=== PATIENT | female | born 1960 | race Caucasian/White ===

== ENCOUNTER 2016-05-29 13:03 | Inpatient (IN) | payer MEDICAID ==
[~2016-05-29] VITALS: Ht 170.2 cm; Wt 48.8 kg
[2016-05-29 13:35] LABS: Basophils # (auto) 0.1 uL; Basophils % (auto) 0.4 % (0.0-2.0); Eosinophils # (auto) 0.4 uL; Eosinophils % (auto) 2.4 % (0.0-7.0); Hematocrit 45.1 % (36.0-46.0); Lymphocytes # (auto) 1.6 uL; Lymphocytes % (auto) 11.1 % (10.0-50.0); Mean Corpuscular Hemoglobin 31.1 pg (28.0-32.0); Mean Corpuscular Hgb Conc. 33.2 g/dL (32.0-36.0); Mean Corpuscular Volume 93.7 fL (80.0-100.0); Mean Platelet Volume 7.9 fL (7.4-10.4); Monocytes # (auto) 1.3 uL; Monocytes % (auto) 8.6 % (0.0-12.0); Neutrophils # (auto) 11.3 uL; Neutrophils % (auto) 77.5 % (37.0-80.0); Platelet Count (auto) 205 10^3/uL (140-450); Red Cell Distribution Width 13.4 % (11.6-16.0); White Blood Cell 14.5 10^3/uL (4.4-10.8)
[2016-05-29 14:13] LABS: Albumin 3.3 g/dL (3.4-5.0); Alkaline Phosphatase 181 U/L (45-117); Anion Gap 11 (5-15); Aspartate Aminotransferase 37 U/L (15-37); BUN/Creatinine Ratio 18.2; Bilirubin, Total 0.7 mg/dL (0.2-1.0); Blood Urea Nitrogen 14 mg/dL (7-18); Calcium 8.8 mg/dL (8.5-10.1); Carbon Dioxide 29 mmol/L (21-32); Chloride 99 mmol/L (98-107); GFR African American 99 mL/min; GFR Non-African American 82 mL/min; Glucose 111 mg/dL (74-106); Potassium 3.9 mmol/L (3.5-5.1); Sodium 139 mmol/L (136-145); Total Protein 8.4 g/dL (6.4-8.2)
[2016-05-29] MEDS ORDERED: cefTRIAXone 1GM/50ML D5W 50 ML IV ONE (14:45)
[2016-05-29] MEDS ORDERED: ALBUTEROL SULF 2.5 MG/0.5ML(0.5%) NEB SOLN NEB ONE (14:45)
[2016-05-29] MEDS ORDERED: LEVOFLOXACIN 500MG 100 ML IV ONE (14:45)
[2016-05-29] MEDS ORDERED: SODIUM CHLORIDE 0.9% 1,000 ML IV ONE (14:45)
[2016-05-29] MEDS ORDERED: IPRATROPIUM BROM 0.5 MG/2.5ML INH SOL NEB ONE (14:45)
[2016-05-29] MEDS: SODIUM CHLORIDE 0.9% 1,000 ML IV SCH (15:20)
[2016-05-29] MEDS ORDERED: PROMETHAZINE HCL 25 MG/ML 1ML IV PRN (15:30)
[2016-05-29] MEDS ORDERED: MORPHINE SULF INJ 2 MG/ML SYRINGE 1ML IV PRN ×2 (15:30)
[2016-05-29] MEDS ORDERED: LACTULOSE 20Gm/30ML SOLN PO PRN (15:30)
[2016-05-29] MEDS ORDERED: HYDROcodone-ACET 5/325MG TAB PO PRN (15:30)
[2016-05-29] MEDS ORDERED: ACETAMINOPHEN 500 MG TAB PO PRN (15:30)
[2016-05-29] MEDS ORDERED: ALBUTEROL SULF 2.5 MG/0.5ML(0.5%) NEB SOLN NEB PRN (15:30)
[2016-05-29] MEDS ORDERED: TEMAZEPAM 15 MG CAP PO PRN (15:30)
[2016-05-29] MEDS ORDERED: OSELTAMIVIR 75 MG CAP PO ONE (15:30)
[2016-05-29] MEDS ORDERED: NITROGLYCERIN 0.4 MG SL TAB SL PRN (15:30)
[2016-05-29] MEDS ORDERED: LORazepam 0.5 MG TAB PO PRN (15:30)
[2016-05-29] MEDS ORDERED: ENOXAPARIN SOD 40 MG/0.4 ML SYRINGE SC ONE (15:45)
[2016-05-29] MEDS: DOXYCYCLINE HYC 100MG/250ML 250 ML IV SCH (17:04)
[2016-05-29] MEDS: methylPREDNISolone SOD SUCC 40 MG/ML VL IV SCH (18:09)
[2016-05-29] MEDS: IPRATROPIUM BROM 0.5 MG/2.5ML INH SOL NEB SCH (19:35)
[2016-05-29] MEDS: ALBUTEROL SULF 2.5 MG/0.5ML(0.5%) NEB SOLN NEB SCH (19:35)
[2016-05-29 20:00] VITALS: BP 141/71
[2016-05-29] MEDS: OSELTAMIVIR 30 MG CAP PO SCH (21:36)
[2016-05-29 22:00] VITALS: BP 163/74
[2016-05-29] MEDS ORDERED: OSELTAMIVIR 75 MG CAP PO SCH (22:00)
[2016-05-30] MEDS: methylPREDNISolone SOD SUCC 40 MG/ML VL IV SCH ×4 (00:01→18:00)
[2016-05-30] MEDS: IPRATROPIUM BROM 0.5 MG/2.5ML INH SOL NEB SCH ×3 (00:28→11:51)
[2016-05-30] MEDS: ALBUTEROL SULF 2.5 MG/0.5ML(0.5%) NEB SOLN NEB SCH ×3 (00:29→11:51)
[2016-05-30] MEDS: DOXYCYCLINE HYC 100MG/250ML 250 ML IV SCH ×2 (03:32→16:12)
[2016-05-30 05:00] VITALS: BP 164/85
[2016-05-30] MEDS: SODIUM CHLORIDE 0.9% 1,000 ML IV SCH ×2 (05:07→18:00)
[2016-05-30 06:11] LABS: Basophils # (auto) 0 uL; Eosinophils # (auto) 0 uL; Hematocrit 40.7 % (36.0-46.0); Hemoglobin 13.6 g/dL (12.2-16.2); Lymphocytes # (auto) 0.7 uL; Lymphocytes % (auto) 7.6 % (10.0-50.0); Mean Corpuscular Hemoglobin 31.2 pg (28.0-32.0); Mean Corpuscular Hgb Conc. 33.5 g/dL (32.0-36.0); Mean Corpuscular Volume 93.1 fL (80.0-100.0); Mean Platelet Volume 8.5 fL (7.4-10.4); Monocytes # (auto) 0.1 uL; Monocytes % (auto) 0.7 % (0.0-12.0); Neutrophils # (auto) 8.5 uL; Neutrophils % (auto) 91.7 % (37.0-80.0); Platelet Count (auto) 191 10^3/uL (140-450); Red Cell Distribution Width 13.1 % (11.6-16.0); White Blood Cell 9.3 10^3/uL (4.4-10.8)
[2016-05-30 06:37] LABS: Cholesterol 158 mg/dL (<200); HDL Cholesterol 28 mg/dL (40-59); LDL Cholesterol 129 mg/dL (<100); Triglycerides 71 mg/dL (<150)
[2016-05-30 08:00] VITALS: BP 153/74
[2016-05-30 09:00] VITALS: BP 153/74
[2016-05-30] MEDS ORDERED: ENOXAPARIN SOD 40 MG/0.4 ML SYRINGE SC SCH (10:00)
[2016-05-30] MEDS: OSELTAMIVIR 30 MG CAP PO SCH (10:40)
[2016-05-30 13:00] VITALS: BP 138/59
[2016-05-30] MEDS ORDERED: GABA300C8 (14:09)
[2016-05-30] MEDS ORDERED: BENZ1CAP24 (14:15)
[2016-05-30] MEDS ORDERED: [UNRECOGNIZED DRUG - CODE] (14:15)
[2016-05-30] MEDS ORDERED: PRO20T (14:15)
[2016-05-30] MEDS ORDERED: NIFE60TA59 (14:15)
[2016-05-30] MEDS ORDERED: HYDRX10T (14:15)
[2016-05-30] MEDS ORDERED: PANT40T (14:15)
[2016-05-30] MEDS ORDERED: TRAZ50TA2 (14:15)
[2016-05-30] MEDS ORDERED: IPRIH IN (16:19)
[2016-05-30] MEDS ORDERED: DOXY1CAP82 PO (16:19)
[2016-05-30] MEDS ORDERED: ALB5IS NEB (16:19)
[2016-05-30] MEDS ORDERED: METH4PAK PO (16:19)
[2016-05-30] MEDS ORDERED: ALBUAER3 IN (16:19)
[2016-05-30 17:00] VITALS: BP 150/75
[2016-05-30 17:25] VITALS: BP 150/75
== END 2016-05-30 18:15 | disposition home health service (06) | DRG 140 ==
LOC: ER 13:03 → TELE 13:04 → TELE-WESTW 17:20
PROVIDERS: ADMIT Internal Medicine; ATTEND Internal Medicine
DX: J44.1 Chronic obstructive pulmonary disease with (acute) exacerbation (principal); I15.9 Secondary hypertension, unspecified; I10 Essential (primary) hypertension; K21.9 Gastro-esophageal reflux disease without esophagitis; F41.9 Anxiety disorder, unspecified; G47.00 Insomnia, unspecified; F17.200 Nicotine dependence, unspecified, uncomplicated; F12.10 Cannabis abuse, uncomplicated; Z98.51 Tubal ligation status; Z83.6 Family history of other diseases of the respiratory system; Z71.6 Tobacco abuse counseling
CPT/HCPCS: 36415; 71020; 80053; 80061; 84484; 85025; 87040; 87070; 87081; 87205; 93005; 94640; 96365; 96368; 96372; 99291; G9035; J0696; J1956; J3490

== ENCOUNTER 2020-09-26 22:29 | Inpatient (IN) | payer MEDICAID ==
[~2020-09-26] VITALS: Ht 170.2 cm; Wt 57.7 kg
[~2020-09-26 22:29] MED LIST: ALB5IS NEB; ALBUAER3 IN; BENZ200C64; DOXY-338 PO; GABA300C10; HYDRX10T; IPRIH IN; METH4PAK PO; NIFE1TAB30; PANT40T; PRO20T; TRAZ50TA2
[2020-09-26 23:20] LABS: Hemoglobin 14.6 g/dL (12.2-16.2); Mean Corpuscular Hemoglobin 28.6 pg (28.0-32.0); Mean Corpuscular Hgb Conc. 33.9 g/dL (32.0-36.0); Mean Corpuscular Volume 84.5 fL (80.0-100.0); Platelet Count (auto) 243 10^3/uL (140-450); Red Blood Cells 5.09 10^6/uL (4.0-5.20); Red Cell Distribution Width 15.5 % (11.8-14.3); White Blood Cell 8.4 10^3/uL (4.4-10.8)
[2020-09-26 23:25] LABS: Band Neutrophils % (manual) 0; Basophils % (manual) 0 (0.0-2.0); Blast Cells 0; Calcium 9.3 mg/dL (8.5-10.1); Chloride 103 mmol/L (98-107); Potassium 4.2 mmol/L (3.5-5.1); Promyelocytes % 0; Reactive Lymphocytes 0; Sodium 137 mmol/L (136-145)
[2020-09-26 23:28] LABS: Albumin 4.5 g/dL (3.4-5.0); Anion Gap 7 (5-15); BUN/Creatinine Ratio 8.1; Blood Urea Nitrogen 8 mg/dL (7-18); Carbon Dioxide 27 mmol/L (21-32); GFR African American 73 mL/min; GFR Non-African American 60 mL/min; Glucose 124 mg/dL (74-106); Magnesium 2.6 mg/dL (1.6-2.6)
[2020-09-26 23:29] LABS: INR 1.05 (0.9-1.15); Partial Thromboplastin Time 26.8 sec (23.0-31.2)
[2020-09-26 23:35] LABS: Alanine Aminotransferase 23 U/L (13-56); Alkaline Phosphatase 89 U/L (45-117); Aspartate Aminotransferase 23 U/L (15-37); Bilirubin, Total 0.7 mg/dL (0.2-1.0); Total Protein 9.4 g/dL (6.4-8.2)
[2020-09-27 00:30] LABS: Eosinophils % (manual) 14 (0-7); Lymphocytes % (manual) 26 (10.0-50.0); Metamyelocytes % 1; Monocytes % (manual) 7 (0-12); Myelocytes % 1
[2020-09-27] MEDS ORDERED: methylPREDNISolone SOD SUCC 125 MG/2 ML VL IV ONE (01:45)
[2020-09-27 02:52] LABS: Urine Bacteria FEW /hpf (None Seen); Urine Blood Negative /uL (Negative); Urine Mucus FEW (None Seen); Urine Specific Gravity 1.007 (1.001-1.035); Urine WBC 1 /hpf (0 - 5)
[2020-09-27] MEDS ORDERED: ALBUTEROL SULF 2.5 MG/0.5ML(0.5%) NEB SOLN NEB ONE (03:00)
[2020-09-27] MEDS ORDERED: ALBUTEROL SULF 2.5 MG/0.5ML(0.5%) NEB SOLN ONE ×2 (03:13→07:30)
[2020-09-27] MEDS ORDERED: IPRATROPIUM BROM 0.5 MG/2.5ML INH SOL ONE (03:14)
[2020-09-27] MEDS: MAGNESIUM SULFATE 1GM/100ML 100 ML IV SCH ×2 (03:55→04:54)
[2020-09-27] MEDS ORDERED: ONDANSETRON HCL 4 MG/2 ML VIAL IV PRN (07:15)
[2020-09-27] MEDS ORDERED: MORPHINE SULF INJ 2 MG/ML SYRINGE 1ML IV PRN (07:15)
[2020-09-27] MEDS: ALBUTEROL SULF 2.5 MG/0.5ML(0.5%) NEB SOLN NEB SCH ×5 (07:49→22:01)
[2020-09-27 07:54] VITALS: BP 165/72
[2020-09-27] MEDS: methylPREDNISolone SOD SUCC 125 MG/2 ML VL IV SCH ×2 (10:10→21:22)
[2020-09-27] MEDS: levoFLOXacin 500MG 100 ML IV SCH (10:10)
[2020-09-27] MEDS: ENOXAPARIN SOD 40 MG/0.4 ML SYRINGE SC SCH (11:16)
[2020-09-27 11:53] VITALS: BP 146/77
[2020-09-27 12:00] VITALS: BP 146/77
[2020-09-27 16:00] VITALS: BP 172/83
[2020-09-27] MEDS ORDERED: hydrALAZINE HCL 20 MG/ML VL IV PRN (16:15)
[2020-09-27 17:00] VITALS: BP 158/75
[2020-09-27] MEDS ORDERED: IBUP200C3 PO (17:10)
[2020-09-27] MEDS: NIFEdipine ER 30 MG TAB PO SCH (17:11)
[2020-09-27] MEDS: GABAPENTIN 300 MG CAP PO SCH (21:22)
[2020-09-27 22:00] VITALS: BP 159/60
[2020-09-27] MEDS: traZODone HCL 50 MG TAB PO SCH (22:32)
[2020-09-28] MEDS: ALBUTEROL SULF 2.5 MG/0.5ML(0.5%) NEB SOLN NEB SCH ×2 (02:06→05:29)
[2020-09-28 05:00] VITALS: BP 136/70
[2020-09-28] MEDS: methylPREDNISolone SOD SUCC 125 MG/2 ML VL IV SCH ×3 (05:30→21:46)
[2020-09-28 08:00] VITALS: BP 129/77
[2020-09-28 09:00] VITALS: BP 129/77
[2020-09-28] MEDS: levoFLOXacin 500MG 100 ML IV SCH (09:41)
[2020-09-28] MEDS: ENOXAPARIN SOD 40 MG/0.4 ML SYRINGE SC SCH (09:42)
[2020-09-28] MEDS: NIFEdipine ER 30 MG TAB PO SCH (09:42)
[2020-09-28] MEDS: GABAPENTIN 300 MG CAP PO SCH ×2 (09:42→21:45)
[2020-09-28 13:00] VITALS: BP 140/72
[2020-09-28] MEDS: ALBUTEROL SULF 2.5 MG/0.5ML(0.5%) NEB SOLN NEB PRN ×2 (13:00→19:34)
[2020-09-28 17:00] VITALS: BP 141/73
[2020-09-28] MEDS ORDERED: IPRIH IN (17:07)
[2020-09-28] MEDS ORDERED: LEVO500T31 PO (17:11)
[2020-09-28] MEDS ORDERED: PRED20TA2 PO (17:11)
[2020-09-28 21:41] VITALS: BP 146/75
[2020-09-28] MEDS: traZODone HCL 50 MG TAB PO SCH (21:45)
[2020-09-29 04:36] VITALS: BP 158/71
[2020-09-29] MEDS: methylPREDNISolone SOD SUCC 125 MG/2 ML VL IV SCH (05:19)
[2020-09-29] MEDS: ALBUTEROL SULF 2.5 MG/0.5ML(0.5%) NEB SOLN NEB PRN ×3 (07:47→18:26)
[2020-09-29 09:00] VITALS: BP 145/71
[2020-09-29] MEDS ORDERED: methylPREDNISolone SOD SUCC 40 MG/ML VL IV SCH ×2 (09:00→18:00)
[2020-09-29] MEDS: levoFLOXacin 500MG 100 ML IV SCH (09:27)
[2020-09-29] MEDS: GABAPENTIN 300 MG CAP PO SCH (09:28)
[2020-09-29] MEDS: NIFEdipine ER 30 MG TAB PO SCH (09:30)
[2020-09-29] MEDS: ENOXAPARIN SOD 40 MG/0.4 ML SYRINGE SC SCH (09:31)
[2020-09-29 13:00] VITALS: BP 150/85
[2020-09-29 15:43] VITALS: BP 150/85
[2020-09-29 17:00] VITALS: BP 111/52
== END 2020-09-29 18:40 | disposition home health service (06) | DRG 140 ==
LOC: ER 22:29 → EDBD 22:29 → TELE 09-27 07:02 → TELE-CENTR 09-27 10:25
PROVIDERS: ADMIT Hospitalist; ATTEND Hospitalist
PROC: 5A09357 Assistance with Respiratory Ventilation, Less than 24 Consecutive Hours, Continuous Positive Airway Pressure (ICD-10-PCS; principal; 2020-09-26)
DX: J44.1 Chronic obstructive pulmonary disease with (acute) exacerbation (principal); J96.01 Acute respiratory failure with hypoxia; J98.11 Atelectasis; F17.210 Nicotine dependence, cigarettes, uncomplicated; G25.81 Restless legs syndrome; I10 Essential (primary) hypertension; Z20.822 Contact with and (suspected) exposure to COVID-19; Z82.5 Family history of asthma and other chronic lower respiratory diseases; G62.9 Polyneuropathy, unspecified; K21.9 Gastro-esophageal reflux disease without esophagitis; F19.10 Other psychoactive substance abuse, uncomplicated
CPT/HCPCS: 36415; 36600; 71045; 80053; 81001; 82805; 83605; 83735; 83880; 84484; 85007; 85027; 85049; 85379; 85610; 85730; 87040; 87426; 93005; 94640; 96365; 96366; 96367; 96375; G0378; J1956

== ENCOUNTER 2020-10-25 04:42 | Inpatient (IN) | payer MEDICAID ==
[~2020-10-25] VITALS: Ht 170.2 cm; Wt 56.0 kg
[~2020-10-25 04:42] MED LIST changes: -ALB5IS NEB; -ALBUAER3 IN; -BENZ200C64; -DOXY-338 PO; -HYDRX10T; +LEVO500T31 PO; -METH4PAK PO; +PRED20TA2 PO; -PRO20T
[2020-10-25] MEDS ORDERED: methylPREDNISolone SOD SUCC 125 MG/2 ML VL IV ONE (05:00)
[2020-10-25] MEDS ORDERED: IPRATROPIUM BROM 0.5 MG/2.5ML INH SOL HHN ONE (05:00)
[2020-10-25] MEDS ORDERED: ALBUTEROL SULF 2.5 MG/0.5ML(0.5%) NEB SOLN HHN ONE (05:00)
[2020-10-25 08:11] LABS: Basophils # (auto) 0 10 ^3/uL (0-0.2); Basophils % (auto) 0.4 % (0.0-2.0); Eosinophils # (auto) 0.4 10 ^3/uL (0-0.8); Hematocrit 37.8 % (36.0-46.0); Hemoglobin 12.6 g/dL (12.2-16.2); Lymphocytes # (auto) 0.5 10 ^3/uL (0.4-5.4); Lymphocytes % (auto) 8.1 % (10.0-50.0); Mean Corpuscular Hemoglobin 28.4 pg (28.0-32.0); Mean Corpuscular Hgb Conc. 33.3 g/dL (32.0-36.0); Mean Corpuscular Volume 85.4 fL (80.0-100.0); Monocytes # (auto) 0.1 10 ^3/uL (0-1.3); Neutrophils # (auto) 5.2 10 ^3/uL (1.6-8.6); Neutrophils % (auto) 83.5 % (37.0-80.0); Red Blood Cells 4.43 10^6/uL (4.0-5.20); White Blood Cell 6.3 10^3/uL (4.4-10.8)
[2020-10-25 08:35] LABS: Albumin 4.1 g/dL (3.4-5.0); Anion Gap 7 (5-15); Blood Urea Nitrogen 11 mg/dL (7-18); Calcium 9.3 mg/dL (8.5-10.1); Carbon Dioxide 28 mmol/L (21-32); Chloride 98 mmol/L (98-107); Glucose 118 mg/dL (74-106); Magnesium 2.3 mg/dL (1.6-2.6); Potassium 4.5 mmol/L (3.5-5.1); Sodium 133 mmol/L (136-145)
[2020-10-25 08:37] LABS: Alanine Aminotransferase 19 U/L (13-56); Aspartate Aminotransferase 15 U/L (15-37); GFR African American 80 mL/min; GFR Non-African American 66 mL/min
[2020-10-25 08:41] LABS: Alkaline Phosphatase 73 U/L (45-117); Bilirubin, Total 0.4 mg/dL (0.2-1.0); Total Protein 8.1 g/dL (6.4-8.2)
[2020-10-25] MEDS ORDERED: MORPHINE SULF INJ 2 MG/ML SYRINGE 1ML IV PRN (11:45)
[2020-10-25] MEDS ORDERED: NITROGLYCERIN 0.4 MG SL TAB SL PRN (11:45)
[2020-10-25] MEDS: ALBUTEROL SULF 2.5 MG/0.5ML(0.5%) NEB SOLN NEB SCH ×2 (13:28→19:55)
[2020-10-25] MEDS: IPRATROPIUM BROM 0.5 MG/2.5ML INH SOL NEB SCH ×2 (13:28→19:55)
[2020-10-25 14:23] VITALS: BP 157/71
[2020-10-25 16:37] VITALS: BP 159/73
[2020-10-25 19:19] VITALS: BP 161/82
[2020-10-25 21:58] VITALS: BP 171/77
[2020-10-25 22:24] VITALS: BP 162/73
[2020-10-26] MEDS: IPRATROPIUM BROM 0.5 MG/2.5ML INH SOL NEB SCH ×4 (01:04→18:30)
[2020-10-26] MEDS: ALBUTEROL SULF 2.5 MG/0.5ML(0.5%) NEB SOLN NEB SCH ×4 (01:04→18:31)
[2020-10-26] MEDS ORDERED: hydrALAZINE HCL 20 MG/ML VL IV PRN (02:30)
[2020-10-26 05:00] VITALS: BP 156/92
[2020-10-26 09:00] VITALS: BP 162/70
[2020-10-26] MEDS ORDERED: NIFEdipine ER 30 MG TAB PO SCH (10:00)
[2020-10-26] MEDS ORDERED: methylPREDNISolone SOD SUCC 40 MG/ML VL IV SCH (10:00)
[2020-10-26 13:00] VITALS: BP 166/89
[2020-10-26] MEDS ORDERED: levoFLOXacin 500MG 100 ML IV SCH (13:30)
[2020-10-26] MEDS ORDERED: LEVO-28 PO (16:20)
[2020-10-26] MEDS ORDERED: PRED20TA2 PO (16:20)
[2020-10-26 16:48] VITALS: BP 165/77
[2020-10-26 17:06] VITALS: BP 162/70
== END 2020-10-26 18:30 | disposition home health service (06) | DRG 140 ==
LOC: ER 04:42 → EDBD 04:42 → TELE 11:40 → TELE-WESTW 15:44
PROVIDERS: ADMIT Internal Medicine; ATTEND Internal Medicine
PROC: 5A09357 Assistance with Respiratory Ventilation, Less than 24 Consecutive Hours, Continuous Positive Airway Pressure (ICD-10-PCS; principal; 2020-10-25)
DX: J44.1 Chronic obstructive pulmonary disease with (acute) exacerbation (principal); J96.21 Acute and chronic respiratory failure with hypoxia; Z99.81 Dependence on supplemental oxygen; J96.22 Acute and chronic respiratory failure with hypercapnia; Z20.822 Contact with and (suspected) exposure to COVID-19; F12.90 Cannabis use, unspecified, uncomplicated; F17.210 Nicotine dependence, cigarettes, uncomplicated; I10 Essential (primary) hypertension; F41.9 Anxiety disorder, unspecified; G62.9 Polyneuropathy, unspecified; K21.9 Gastro-esophageal reflux disease without esophagitis; Z82.5 Family history of asthma and other chronic lower respiratory diseases; Z71.3 Dietary counseling and surveillance; Z79.899 Other long term (current) drug therapy; Z68.1 Body mass index [BMI] 19.9 or less, adult
CPT/HCPCS: 36415; 36600; 71045; 80053; 82805; 83605; 83735; 83880; 84484; 85025; 85379; 87040; 87426; 93005; 94640; 94660; 96374; G0378; J1956

== ENCOUNTER 2020-11-13 23:49 | Emergency (ER) | payer MEDICAID ==
[~2020-11-13] VITALS: Ht 160 cm; Wt 77.1 kg
[~2020-11-13 23:49] MED LIST changes: +LEVO-28 PO; -LEVO500T31 PO
[2020-11-14 01:39] LABS: Basophils # (auto) 0.1 10 ^3/uL (0-0.2); Basophils % (auto) 0.8 % (0.0-2.0); Eosinophils # (auto) 0.9 10 ^3/uL (0-0.8); Eosinophils % (auto) 10.3 % (0.0-7.0); Hematocrit 36.9 % (36.0-46.0); Hemoglobin 12.6 g/dL (12.2-16.2); Lymphocytes # (auto) 1.1 10 ^3/uL (0.4-5.4); Lymphocytes % (auto) 13.2 % (10.0-50.0); Mean Corpuscular Hemoglobin 29.7 pg (28.0-32.0); Mean Corpuscular Hgb Conc. 34.2 g/dL (32.0-36.0); Mean Corpuscular Volume 86.7 fL (80.0-100.0); Monocytes # (auto) 0.9 10 ^3/uL (0-1.3); Monocytes % (auto) 10.7 % (0.0-12.0); Neutrophils # (auto) 5.4 10 ^3/uL (1.6-8.6); Red Blood Cells 4.26 10^6/uL (4.0-5.20); Red Cell Distribution Width 16.6 % (11.8-14.3); White Blood Cell 8.2 10^3/uL (4.4-10.8)
[2020-11-14 01:52] LABS: INR 1.04 (0.9-1.15); Partial Thromboplastin Time 27.6 sec (23.6-33.0)
[2020-11-14 01:56] LABS: Albumin 3.8 g/dL (3.4-5.0); Anion Gap 6 (5-15); Blood Urea Nitrogen 9 mg/dL (7-18); Carbon Dioxide 28 mmol/L (21-32); Chloride 101 mmol/L (98-107); Glucose 95 mg/dL (74-106); Magnesium 2.4 mg/dL (1.6-2.6); Potassium 4.6 mmol/L (3.5-5.1); Sodium 135 mmol/L (136-145)
[2020-11-14 01:59] LABS: Alanine Aminotransferase 23 U/L (13-56); Aspartate Aminotransferase 18 U/L (15-37); BUN/Creatinine Ratio 8.3; GFR African American 66 mL/min; GFR Non-African American 55 mL/min
[2020-11-14 02:04] LABS: Alkaline Phosphatase 68 U/L (45-117); Bilirubin, Total 0.6 mg/dL (0.2-1.0); Total Protein 8.1 g/dL (6.4-8.2)
[2020-11-14] MEDS ORDERED: cefTRIAXone 1GM/50ML D5W 50 ML IV ONE (03:00)
[2020-11-14] MEDS ORDERED: ALBUTEROL SULF 2.5 MG/0.5ML(0.5%) NEB SOLN NEB ONE (03:00)
[2020-11-14] MEDS ORDERED: methylPREDNISolone SOD SUCC 125 MG/2 ML VL IV ONE (03:00)
[2020-11-14] MEDS ORDERED: IPRATROPIUM BROM 0.5 MG/2.5ML INH SOL NEB ONE (03:00)
[2020-11-14 04:23] LABS: Urine Bacteria NONE SEEN /hpf (None Seen); Urine Blood Negative /uL (Negative); Urine Specific Gravity 1.003 (1.001-1.035); Urine WBC <1 /hpf (0 - 5)
[2020-11-14 06:00] VITALS: BP 138/65
== END 2020-11-14 06:48 | disposition home or self-care (01) ==
LOC: EDBD 23:49 → ER 23:49
DX: J44.1 Chronic obstructive pulmonary disease with (acute) exacerbation (principal); R19.7 Diarrhea, unspecified; I10 Essential (primary) hypertension; K21.9 Gastro-esophageal reflux disease without esophagitis; F41.9 Anxiety disorder, unspecified; Z20.822 Contact with and (suspected) exposure to COVID-19; Z87.891 Personal history of nicotine dependence
CPT/HCPCS: 36415; 71045; 80053; 81001; 83735; 83880; 84484; 85025; 85379; 85610; 85730; 87426; 94640; 96365; 96375; 99285; J0696; J2930; J7644; 93005

== ENCOUNTER 2020-12-06 01:55 | Emergency (ER) | payer MEDICAID ==
[~2020-12-06] VITALS: Ht 170.2 cm; Wt 69.9 kg
[2020-12-06 02:42] LABS: Basophils # (auto) 0.1 10 ^3/uL (0-0.2); Basophils % (auto) 0.9 % (0.0-2.0); Eosinophils # (auto) 0.5 10 ^3/uL (0-0.8); Eosinophils % (auto) 7.3 % (0.0-7.0); Hematocrit 37.8 % (36.0-46.0); Hemoglobin 12.7 g/dL (12.2-16.2); Lymphocytes # (auto) 1.2 10 ^3/uL (0.4-5.4); Lymphocytes % (auto) 17.6 % (10.0-50.0); Mean Corpuscular Hemoglobin 29.6 pg (28.0-32.0); Mean Corpuscular Hgb Conc. 33.6 g/dL (32.0-36.0); Mean Corpuscular Volume 88.2 fL (80.0-100.0); Monocytes # (auto) 0.7 10 ^3/uL (0-1.3); Monocytes % (auto) 9.7 % (0.0-12.0); Neutrophils # (auto) 4.5 10 ^3/uL (1.6-8.6); Neutrophils % (auto) 64.5 % (37.0-80.0); Nucleated Red Blood Cells % 0.2 %; Red Blood Cells 4.28 10^6/uL (4.0-5.20); Red Cell Distribution Width 16.8 % (11.8-14.3)
[2020-12-06 02:58] LABS: Albumin 3.8 g/dL (3.4-5.0); Anion Gap 7 (5-15); BUN/Creatinine Ratio 10.5; Blood Urea Nitrogen 12 mg/dL (7-18); Calcium 8.6 mg/dL (8.5-10.1); Carbon Dioxide 26 mmol/L (21-32); Chloride 100 mmol/L (98-107); GFR African American 62 mL/min; GFR Non-African American 51 mL/min; Glucose 103 mg/dL (74-106); Sodium 133 mmol/L (136-145)
[2020-12-06 03:03] LABS: Alanine Aminotransferase 22 U/L (13-56); Alkaline Phosphatase 60 U/L (45-117); Aspartate Aminotransferase 23 U/L (15-37); Bilirubin, Total 0.4 mg/dL (0.2-1.0); Total Protein 7.9 g/dL (6.4-8.2)
[2020-12-06] MEDS ORDERED: ALBUTEROL SULF 2.5 MG/0.5ML(0.5%) NEB SOLN NEB ONE (03:15)
[2020-12-06] MEDS ORDERED: IPRATROPIUM BROM 0.5 MG/2.5ML INH SOL NEB ONE (03:15)
[2020-12-06] MEDS ORDERED: methylPREDNISolone SOD SUCC 125 MG/2 ML VL IV ONE (03:15)
[2020-12-06] MEDS ORDERED: cefTRIAXone 1GM/50ML D5W 50 ML IV ONE (05:15)
[2020-12-06] MEDS ORDERED: AZITHROMYCIN 500MG/ 250ML 250 ML IV ONE (05:15)
[2020-12-06 07:10] VITALS: BP 134/85
== END 2020-12-06 08:18 | disposition home or self-care (01) ==
LOC: ER 01:55 → EDBD 01:55 → ER 07:41
DX: J44.1 Chronic obstructive pulmonary disease with (acute) exacerbation (principal); K21.9 Gastro-esophageal reflux disease without esophagitis; I10 Essential (primary) hypertension; F12.10 Cannabis abuse, uncomplicated; Z87.891 Personal history of nicotine dependence
CPT/HCPCS: 36415; 71045; 80053; 83880; 84484; 85025; 93005; 94644; 96365; 96368; 96375; 99284; J0456; J0696; J2930; J7644

== ENCOUNTER 2022-11-06 15:15 | Inpatient (IN) | payer MEDICAID ==
[~2022-11-06] VITALS: Ht 170.2 cm; Wt 56.7 kg
[~2022-11-06 15:15] MED LIST changes: +GABA-1250; -GABA300C10; -LEVO-28 PO; +LEVO500T91 PO; +TRAZ-227; -TRAZ50TA2
[2022-11-06 16:00] VITALS: PULSE 100; RESP 18; O2SAT 95
[2022-11-06] MEDS ORDERED: NITROGLYCERIN 2% OINT 1GM PKG TD STA (16:12)
[2022-11-06] MEDS ORDERED: ASPirin 81 mg TAB PO ONE ×2 (16:15)
[2022-11-06 16:44] LABS: Basophils # (auto) 0.1 10 ^3/uL (0-0.2); Basophils % (auto) 0.7 % (0.0-2.0); Eosinophils # (auto) 0.3 10 ^3/uL (0-0.8); Lymphocytes # (auto) 1.5 10 ^3/uL (0.4-5.4)
[2022-11-06 16:46] LABS: Eosinophils % (auto) 2.7 % (0.0-7.0); Hematocrit 36.7 % (36.0-46.0); Mean Corpuscular Hemoglobin 26.7 pg (28.0-32.0); Mean Corpuscular Hgb Conc. 32.7 g/dL (32.0-36.0); Mean Corpuscular Volume 81.8 fL (80.0-100.0); Monocytes % (auto) 8.9 % (0.0-12.0); Neutrophils # (auto) 8.6 10 ^3/uL (1.6-8.6); Neutrophils % (auto) 74.7 % (37.0-80.0); Red Blood Cells 4.49 10^6/uL (4.0-5.20); Red Cell Distribution Width 16.2 % (11.8-14.3); White Blood Cell 11.5 10^3/uL (4.4-10.8)
[2022-11-06 17:03] LABS: INR 1.12 (0.9-1.15); Partial Thromboplastin Time 27.6 SEC (24.5-34.5)
[2022-11-06 17:04] LABS: Magnesium 2.2 mg/dL (1.6-2.6); Potassium 3.9 mmol/L (3.5-5.1)
[2022-11-06 17:09] LABS: BUN/Creatinine Ratio 12.9 (10.0-20.0); Bilirubin, Total 0.4 mg/dL (0.2-1.0); Total Protein 8.2 g/dL (6.4-8.2)
[2022-11-06 17:55] LABS: Urine Bacteria NONE SEEN /hpf (None Seen); Urine Blood Negative /uL (Negative); Urine Hyaline Cast FEW /lpf (0 - 2); Urine WBC 1 /hpf (0 - 5)
[2022-11-06 18:05] LABS: Alcohol, Urine < 3.0 mg/dL (0-10); Amphetamine Screen, Urine NEGATIVE (NEGATIVE); Barbiturate Scree,Urine NEGATIVE (NEGATIVE); Cannabinoid Screen, Urine POSITIVE (NEGATIVE)
[2022-11-06 18:13] LABS: Benzodiazephine Screen, Urine NEGATIVE (NEGATIVE); Cocaine Screen, Urine NEGATIVE (NEGATIVE); Opiate Scree,Urine NEGATIVE (NEGATIVE); Phencyclidine Screen, Urine NEGATIVE (NEGATIVE)
[2022-11-06] MEDS ORDERED: MORPHINE SULFATE 4 MG/ML SYR/VIAL IV PRN (19:00)
[2022-11-06] MEDS ORDERED: ONDANSETRON HCL 4 MG/2 ML VIAL IV PRN (19:00)
[2022-11-06] MEDS ORDERED: NITROGLYCERIN 0.4 MG SL TAB SL PRN (19:00)
[2022-11-06 19:30] VITALS: PULSE 92; RESP 20; O2SAT 93
[2022-11-06] MEDS: ATORVASTATIN 20 MG TAB PO SCH (21:09)
[2022-11-06] MEDS: GABAPENTIN 300 MG CAP PO SCH (21:10)
[2022-11-06] MEDS: LORazepam 0.5 MG TAB PO PRN (21:10)
[2022-11-07] MEDS ORDERED: ACETAMINOPHEN 325 MG TAB PO PRN (04:45)
[2022-11-07] MEDS: LORazepam 0.5 MG TAB PO PRN ×2 (04:54→20:26)
[2022-11-07 08:48] VITALS: RESP 18; O2SAT 100
[2022-11-07 09:00] VITALS: BP 126/72; PULSE 91; RESP 20; TEMP 98; O2SAT 97
[2022-11-07] MEDS: DOCUSATE SOD 100 MG CAP PO SCH (10:12)
[2022-11-07] MEDS: GABAPENTIN 300 MG CAP PO SCH ×2 (10:12→20:23)
[2022-11-07] MEDS: ASPirin 81 mg TAB PO SCH (10:13)
[2022-11-07] MEDS: PANTOPRAZOLE 40 MG TAB PO SCH (10:13)
[2022-11-07] MEDS: NIFEdipine ER 30 MG TAB PO SCH (10:16)
[2022-11-07] MEDS: traZODone HCL 50 MG TAB PO SCH (10:19)
[2022-11-07] MEDS ORDERED: FLUT1AER3 IN (10:42)
[2022-11-07] MEDS ORDERED: SIMV20TA20 PO (10:42)
[2022-11-07] MEDS ORDERED: LISI10TA34 PO (10:42)
[2022-11-07] MEDS ORDERED: CETI10TA2 PO (10:42)
[2022-11-07] MEDS ORDERED: NIFE1TAB30 PO (10:42)
[2022-11-07] MEDS ORDERED: BENZ100C97 PO (10:42)
[2022-11-07] MEDS ORDERED: ROFL1TAB2 PO (10:42)
[2022-11-07 13:00] VITALS: BP 149/71; PULSE 112; RESP 20; TEMP 98.7; O2SAT 96
[2022-11-07 17:00] VITALS: BP 117/66; PULSE 93; RESP 16; TEMP 98.8; O2SAT 96
[2022-11-07 20:00] VITALS: BP 142/73; PULSE 81; RESP 18; TEMP 37.1
[2022-11-07] MEDS: ATORVASTATIN 20 MG TAB PO SCH (20:23)
[2022-11-07 22:00] VITALS: BP 139/67; PULSE 93; RESP 18; TEMP 97.9; O2SAT 93
[2022-11-08 08:00] VITALS: BP 142/73; PULSE 80; RESP 18; TEMP 37.1
[2022-11-08 08:57] VITALS: BP 134/81; PULSE 94; RESP 16; TEMP 98; O2SAT 97
[2022-11-08] MEDS: DOCUSATE SOD 100 MG CAP PO SCH (10:01)
[2022-11-08] MEDS: traZODone HCL 50 MG TAB PO SCH (10:01)
[2022-11-08] MEDS: PANTOPRAZOLE 40 MG TAB PO SCH (10:01)
[2022-11-08] MEDS: GABAPENTIN 300 MG CAP PO SCH (10:01)
[2022-11-08] MEDS: ASPirin 81 mg TAB PO SCH (10:01)
[2022-11-08] MEDS: NIFEdipine ER 30 MG TAB PO SCH (10:04)
[2022-11-08] MEDS ORDERED: ALPR0.25 PO (11:13)
[2022-11-08] MEDS ORDERED: THIA100T10 PO (11:13)
[2022-11-08 11:56] VITALS: BP 134/81; TEMP 36.7
[2022-11-08 13:00] VITALS: BP 154/81; PULSE 92; RESP 14; TEMP 98.2; O2SAT 95
== END 2022-11-08 15:00 | disposition home or self-care (01) | DRG 198 ==
LOC: EDBD 15:15 → ER 15:15 → EDUNIT# 15:15 → TELE 19:14 → TELE-WESTW 11-07 08:10
PROVIDERS: ADMIT Nurse Practitioner Family; ATTEND Nurse Practitioner Family
DX: I24.9 Acute ischemic heart disease, unspecified (principal); N17.9 Acute kidney failure, unspecified; I25.2 Old myocardial infarction; K74.60 Unspecified cirrhosis of liver; D72.829 Elevated white blood cell count, unspecified; E78.5 Hyperlipidemia, unspecified; F41.1 Generalized anxiety disorder; G25.81 Restless legs syndrome; I12.9 Hypertensive chronic kidney disease with stage 1 through stage 4 chronic kidney disease, or unspecified chronic kidney disease; F10.139 Alcohol abuse with withdrawal, unspecified; Y90.9 Presence of alcohol in blood, level not specified; G62.9 Polyneuropathy, unspecified; J44.9 Chronic obstructive pulmonary disease, unspecified; K21.9 Gastro-esophageal reflux disease without esophagitis; N18.30 Chronic kidney disease, stage 3 unspecified; Z87.891 Personal history of nicotine dependence; Z82.5 Family history of asthma and other chronic lower respiratory diseases; Z82.49 Family history of ischemic heart disease and other diseases of the circulatory system
CPT/HCPCS: 36415; 70450; 71045; 80053; 80307; 81001; 83735; 83880; 84443; 84484; 85025; 85379; 85610; 85730; 93005; 93306; G0378

== ENCOUNTER 2022-12-31 07:14 | Day surgery (SDC) | payer MEDICAID ==
[2022-12-29 11:13] LABS: Urine Bacteria FEW /hpf (None Seen); Urine Blood Negative /uL (Negative); Urine Clarity Clear (Clear); Urine Color Colorless (Yellow); Urine Protein, UAD Negative (Negative); Urine Specific Gravity 1.007 (1.001-1.035); Urine Urobilinogen Normal (Negative); Urine WBC 1 /hpf (0 - 5)
[2022-12-29 11:14] LABS: Basophils # (auto) 0.1 10 ^3/uL (0-0.2); Basophils % (auto) 1.1 % (0.0-2.0); Eosinophils # (auto) 0.4 10 ^3/uL (0-0.8); Hematocrit 39.1 % (36.0-46.0); Hemoglobin 12.9 g/dL (12.2-16.2); Lymphocytes # (auto) 1.6 10 ^3/uL (0.4-5.4); Lymphocytes % (auto) 22.1 % (10.0-50.0); Mean Corpuscular Hemoglobin 27.2 pg (28.0-32.0); Mean Corpuscular Volume 82.6 fL (80.0-100.0); Monocytes # (auto) 0.7 10 ^3/uL (0-1.3); Monocytes % (auto) 9.9 % (0.0-12.0); Neutrophils # (auto) 4.4 10 ^3/uL (1.6-8.6); Neutrophils % (auto) 61.9 % (37.0-80.0); Red Blood Cells 4.73 10^6/uL (4.0-5.20); White Blood Cell 7.1 10^3/uL (4.4-10.8)
[2022-12-29 11:29] LABS: Alanine Aminotransferase 15 U/L (7-40); Alkaline Phosphatase 109 U/L (46-116); Anion Gap 7 (5-15); Aspartate Aminotransferase 28 U/L (13-40); BUN/Creatinine Ratio 12.5 (10.0-20.0); Blood Urea Nitrogen 15 mg/dL (9-23); Calcium 9.7 mg/dL (8.5-10.1); Carbon Dioxide 27 mmol/L (20-30); Chloride 104 mmol/L (98-107); Glucose 100 mg/dL (74-106); Potassium 4.9 mmol/L (3.5-5.1); Sodium 138 mmol/L (136-145)
[2022-12-29 11:30] LABS: Albumin 5.2 g/dL (3.2-4.8); Bilirubin, Total 0.5 mg/dL (0.2-1.0); Total Protein 8.5 g/dL (5.7-8.2)
[2022-12-29 11:43] LABS: INR 1.11 (0.9-1.15); Partial Thromboplastin Time 28.4 SEC (24.5-34.5); Prothrombin Time 11.6 sec (9.3-11.8)
[~2022-12-31] VITALS: Ht 170.2 cm; Wt 56.7 kg
[~2022-12-31 07:14] MED LIST changes: +BENZ100C97 PO; +CETI10TA2 PO; +FLUT1AER3 IN; +IPRAAER6 IN; -IPRIH IN; -LEVO500T91 PO; +LISI10TA34 PO; +NYS5LQ MT; -PRED20TA2 PO; +PROP60CA34 PO; +ROFL1TAB2 PO; +SIMV20TA20 PO; +THIA100T10 PO; -TRAZ-227
[2022-12-31] MEDS ORDERED: ONDANSETRON HCL 4 MG/2 ML VIAL ONE (07:25)
[2022-12-31] MEDS ORDERED: MIDAZOLAM HCL 2MG/2ML 2ml VIAL (1mg/ml) ONE (07:25)
[2022-12-31] MEDS ORDERED: fentaNYL CITRATE 100 MCG/2 ML VL ONE (07:25)
[2022-12-31] MEDS ORDERED: DexAMETHasone SOD PHOS 10MG/1ML VIAL INJ ONE (07:25)
[2022-12-31] MEDS ORDERED: PROPOFOL 10 MG/ML 20 ML IV ONE (07:25)
[2022-12-31] MEDS ORDERED: LIDOCAINE HCL 2 % INJ 2ML MPF NEB ONE (07:30)
[2022-12-31] MEDS ORDERED: HYDROmorphone HCL 2 MG/ML VL/or syr IV PRN ×2 (08:00)
[2022-12-31] MEDS ORDERED: MORPHINE SULFATE INJ 2 MG/ml SYRG IV PRN (08:00)
[2022-12-31] MEDS ORDERED: METOCLOPRAMIDE HCL 5MG/ml INJ 2ml VIAL IV PRN (08:00)
[2022-12-31] MEDS ORDERED: LIDOCAINE HCL 2 % INJ 2ML MPF ONE (08:11)
[2022-12-31 08:34] VITALS: TEMP 97.5; O2SAT 97
[2022-12-31 09:04] VITALS: BP 124/62; PULSE 60; RESP 11; O2SAT 96
== END 2022-12-31 09:10 | disposition home or self-care (01) ==
LOC: GI 07:14
PROVIDERS: ATTEND Internal Medicine Gastroenterology
DX: K74.60 Unspecified cirrhosis of liver (principal); K29.50 Unspecified chronic gastritis without bleeding
CPT/HCPCS: 36415; 43239; 80053; 81001; 85025; 85610; 85730; J1100; J2250; J2405; J2704; J3010; J7030

== ENCOUNTER 2024-09-03 13:46 | Emergency (ER) | payer MEDICARE, MEDICAID ==
[~2024-09-03] VITALS: Ht 167.6 cm; Wt 65.0 kg
[2024-09-03 13:46] VITALS: BP 133/62; RESP 16; TEMP 98.2; O2SAT 95
[2024-09-03 14:03] VITALS: PULSE 79
--- NOTE | 2024-09-03 14:07 | ED.PDOC ---
SOB-HPI HPI Comments 63y F who presents to the ED for chief complaint of shortness of breath. Pt states she woke up this AM and after sitting down on couch after eating breakfast, she started to feel weakness, lightheaded with associated double vision and came to the ED. Pt in the ED, presents to with 2 L 02 via md and states she is also having "fogged vision." Pt in the ED, in no noted respiratory distress and able to speak without getting short of breath. Pt otherwise denies chest pain, diaphoresis, palpitations or any associated symptoms. Pt denies any other symptoms at this time. Time Seen by MD: 14:03 Primary Care Provider: ONI Whitt notes: Medications, Allergies Information Source: Patient Mode of Arrival: Ambulatory Brought in by: spouse Severity: Moderate Timing: Hours Duration: Since onset Context: At Rest, With Light Exertion PE Risk Factors: None History of: COPD Prehospital treatment: Oxygen Modifying Factors: Exertion Associated Signs and Symptoms: None Past Medical History PAST MEDICAL HISTORY: Anxiety, COPD, GERD, High Lipids, HTN, Liver Surgical History: Denies all surgeries PUNCH OPERATOR History: No Pertinent PUNCH OPERATOR History Family History Family History: Family hx of Cancer Social History Smoker: Quit Greater Than 1 Year, Cigarettes Alcohol: Occasionally Drugs: Marijuana Constitutional: reports: malaise, weakness; denies: chills, diaphoresis, fatigue, fever, sweats, others EENTM: reports: blurred vision, double vision; denies: ear bleeding, ear discharge, ear drainage, ear pain, ear ringing, eye pain, eye redness, hearing loss, mouth pain, mouth swelling, nasal discharge, nose bleeding, nose congestion, nose pain, photophobia, tearing, throat pain, throat swelling, voice changes, others Respiratory: reports: shortness of breath; denies: cough, hemoptysis, orthopnea, SOB at rest, SOB with excertion, stridor, wheezing, others Cardiovascular: denies: chest pain, dizzy spells, diaphoresis, Dyspnea on exertion, edema, irregular heart beat, left arm pain, lightheadedness, palpitations, PND, syncope, others Gastrointestinal: denies: abdomen distended, abdominal pain, blood streaked bowels, constipated, diarrhea, dysphagia, difficulty swallowing, hematemesis, melena, nausea, poor appetite, poor fluid intake, rectal bleeding, rectal pain, vomiting, others Genitourinary: denies: abnormal vagina bleeding, burning, dyspareunia, dysuria, flank pain, frequency, hematuria, incontinence, pain, , vagina discharge, urgency, others Neurological: denies: dizziness, fainting, headache, left sided numbness, left sided weakness, numbness, paresthesia, pre-existing deficit, right sided numbness, right sided weakness, seizure, speech problems, tingling, tremors, weakness, others Musculoskeletal: denies: back pain, gout, joint pain, joint swelling, muscle pain, muscle stiffness, neck pain, others Integumetry: denies: bruises, change in color, change in hair/nails, dryness, laceration, lesions, lumps, rash, wounds, others Allergic/Immunocompromised: denies: Difficulty Healing, Frequent Infections, Hives, Itching, others Hematologic/Lymphatic: denies: anemia, blood clots, easy bleeding, easy bruising, swollen glands, others Endocrine: denies: excessive hunger, excessive sweating, excessive thirst, excessive urination, flushing, intolerance to cold, intolerance to heat, u nexplained weight gain, unexplained weight loss, others Psychiatric: denies: anxiety, bipolar disorder, depression, hopeless, panic disorder, schizophrenia, sleepless, suicidal, others All Other Systems: Reviewed and Negative Physical Exam General Appearance: Moderate Distress HEENT: Normal ENT Inspection, Pharynx Normal, TMs Normal Neck: Full Range of Motion, Non-Tender, Normal, Normal Inspection Respiratory: Chest Non-Tender, Lungs Clear, No Accessory Muscle Use, No Respiratory Distress, Normal Breath Sounds Cardiovascular: No Edema, No JVD, No Murmur, No Gallop, Normal Peripheral Pulses, Regular Rate/Rhythm Breast Exam: Deferred Gastrointestinal: No Organomegaly, Non Tender, No Pulsatile Mass, Normal Bowel Sounds, Soft Genitalia: Deferred Pelvic: Deferred Rectal: Deferred Extremities: No calf tenderness, Normal capillary refill, No pedal edema Musculoskeletal : Apperance: Normal Neurologic: Alert, liquefied petroleum gasfitter II-XII nml as Tested, Motor Weakness, Normal Affect, Normal Mood, No Sensory Deficits Cerebellar Function: Normal Reflexes: Normal Skin: Dry, Pallor, Warm Lymphatic: No Adenopathy Was a procedure done? Was a procedure done?: No Differential Dx Differential Diagnosis: Bronchitis, CHF, COPD, Dysrhythmia, Myocardial infarction, Pneumonia, Pulmonary Embolism, Respiratory Distress, URI X-Ray, Labs, Meds, VS Vital Signs Date Time Temp Pulse Resp B/P (MAP) Pulse Ox O2 Delivery O2 Flow Rate FiO2 09/03/24 14:03 79 09/03/24 13:46 98.2 91 16 133/62 (85) 95 98.2 Lab Test 09/03/24 14:09 09/03/24 13:59 Range/Units White Blood Count 7.5 4.4-10.8 10^3/uL Red Blood Count 4.79 4.0-5.20 10^6/uL Hemoglobin 13.6 12.2-16.2 g/dL Hematocrit 41.2 36.0-46.0 % Mean Corpuscular Volume 86.1 80.0-100.0 fL Mean Corpuscular Hemoglobin 28.4 28.0-32.0 pg Mean Corpuscular Hemoglobin Concent 33.0 32.0-36.0 g/dL Red Cell Distribution Width 15.1 H 11.8-14.3 % Platelet Count 256 140-450 10^3/uL Mean Platelet Volume 7.4 6.9-10.8 fL Neutrophils (%) (Auto) 59.1 37.0-80.0 % Lymphocytes (%) (Auto) 26.9 10.0-50.0 % Monocytes (%) (Auto) 8.8 0.0-12.0 % Eosinophils (%) (Auto) 4.2 0.0-7.0 % Basophils (%) (Auto) 1.0 0.0-2.0 % Neutrophils # (Auto) 4.4 1.6-8.6 10 ^3/uL Lymphocytes # (Auto) 2.0 0.4-5.4 10 ^3/uL Monocytes # (Auto) 0.7 0-1.3 10 ^3/uL Eosinophils # (Auto) 0.3 0-0.8 10 ^3/uL Basophils # (Auto) 0.1 0-0.2 10 ^3/uL Nucleated Red Blood Cells 0.1 % Sodium Level 140 136-145 mmol/L Potassium Level 4.5 3.5-5.1 mmol/L Chloride Level 105 98-107 mmol/L Carbon Dioxide Level 27 20-31 mmol/L Anion Gap 8 5-15 Blood Urea Nitrogen 11 9-23 mg/dL Creatinine 1.35 H 0.550-1.02 mg/dL Glomerular Filtration Rate Calc 44 >90 mL/min BUN/Creatinine Ratio 8.1 L 10.0-20.0 Serum Glucose 111 H 74-106 mg/dL Calcium Level 10.8 H 8.7-10.4 mg/dL Troponin I High Sensitivity < 3 L </=34 ng/L POC Glucose 105 70-106 mg/dl CT HEAD WITHOUT CONTRAST IMPRESSION: No evidence of acute intracranial abnormalities. The patient's CBC and chemistry panel is within normal limits The troponin level is negative At this time an IV Hep-Lock was established. The patient is being admitted with a diagnosis of autonomic dysfunction We have discussed the findings with the patient and they are in agreement with the management The patient is admitted Images Reviewed?: Images reviewed and evaluated by me Time of 1ST Reevaluation: 14:35 Reevaluation 1ST: Unchanged Time of 2ND Reevaluation: 17:31 Reevaluation 2ND: Unchanged Patient Education/Counseling: Diagnosis, Treatment, Prognosis Family Education/Counseling: Diagnosis, Treatment, Prognosis Departure 1 Departure Time of Disposition: 17:31 Impression: Primary Impression: Autonomic dysfunction Disposition: ADMITTED INPATIENT Admit to: Tele Condition: Fair Critical Care Note Critical Care Time?: Yes (45 min-critical care time only) Stability Stability form required: Yes Unstable for transfer: Telemetry monitoring (Telemetry monitoring required), ED Physician Assesment (Clinical assesment) Heart Score Heart Score: Heart Score Response (Comments) Value History Slightly Suspicious 0 EKG Normal 0 Age >65 2 Risk Factors 1 or 2 risk factors 1 Troponin Normal limit 0 Total 3 I personally scribed for COREY FINNEGAN MD ([email or web address]) on 09/03/24 at 14:07. Electronically submitted by Vesta Oseguera ([email or web address]). I personally scribed for COREY FINNEGAN MD ([email or web address]) on 09/03/24 at 15:04. Electronically submitted by Vesta Oseguera ([email or web address]). COREY FINNEGAN MD Sep 03, 2024 14:07
[2024-09-03 14:16] LABS: Basophils # (auto) 0.1 10 ^3/uL (0-0.2); Eosinophils # (auto) 0.3 10 ^3/uL (0-0.8); Eosinophils % (auto) 4.2 % (0.0-7.0); Hematocrit 41.2 % (36.0-46.0); Hemoglobin 13.6 g/dL (12.2-16.2); Lymphocytes % (auto) 26.9 % (10.0-50.0); Mean Corpuscular Hemoglobin 28.4 pg (28.0-32.0); Mean Corpuscular Volume 86.1 fL (80.0-100.0); Monocytes # (auto) 0.7 10 ^3/uL (0-1.3); Monocytes % (auto) 8.8 % (0.0-12.0); Neutrophils # (auto) 4.4 10 ^3/uL (1.6-8.6); Neutrophils % (auto) 59.1 % (37.0-80.0); Nucleated Red Blood Cells % 0.1 %; Platelet Count (auto) 256 10^3/uL (140-450); Red Blood Cells 4.79 10^6/uL (4.0-5.20); Red Cell Distribution Width 15.1 % (11.8-14.3); White Blood Cell 7.5 10^3/uL (4.4-10.8)
[2024-09-03 14:26] LABS: Chloride 105 mmol/L (98-107); Potassium 4.5 mmol/L (3.5-5.1); Sodium 140 mmol/L (136-145)
[2024-09-03 14:27] LABS: Anion Gap 8 (5-15); Carbon Dioxide 27 mmol/L (20-31)
[2024-09-03 14:28] LABS: Calcium 10.8 mg/dL (8.7-10.4)
[2024-09-03 14:32] LABS: BUN/Creatinine Ratio 8.1 (10.0-20.0); Blood Urea Nitrogen 11 mg/dL (9-23)
[2024-09-03 14:34] LABS: Glucose 111 mg/dL (74-106)
--- NOTE | 2024-09-03 14:46 | ECG ---
[facility] Test Date: 2024-09-03 Test Time: 14:03:17 Pat Name: AMBER MOLINA Department: ED Room: Gender: F Property Loss Insurance Claim Adjuster: JAYA : 1960 Requested By: COREY FINNEGAN Order Number: [id number] Reading MD: Mario Watson Measurements Intervals [place] Rate: 79 P: 79 OK: 182 QRS: 75 QRSD: 88 T: 74 QT: 379 QTc: 435 Interpretive Statements Sinus rhythm Electronically Signed On 09-03-2024 22:37:07 PDT by Mario Watson Please click the below link to view image of tracing.
--- NOTE | 2024-09-03 14:59 | DVH ---
CT HEAD WITHOUT CONTRAST INDICATION: dizziness COMPARISON: CT HEAD WITHOUT CONTRAST on DOS: 11/06/22 TECHNIQUE: CT of the head without intravenous contrast. RADIATION DOSE: CTDIvol: 55.38 mGy, DLP: 980.63 mGy*cm FINDINGS: There is no evidence of acute intracranial hemorrhage, extra-axial collection, mass effect, midline s hift, herniation or hydrocephalus. The ventricles, sulci and cisterns are commensurate with a mild degree of cerebral volume loss. The gomez-white differentiation is intact. Atherosclerosis in the carotid siphons and left V4 vertebra l artery. Minimal mucosal thickening in the paranasal sinuses. Mastoids are clear. The surrounding soft tissues and osseous structures are unremarkable. IMPRESSION: No evidence of acute intracranial abnormalities.
== END 2024-09-03 23:50 | disposition left against medical advice (07) ==
LOC: ER 13:46
DX: G90.9 Disorder of the autonomic nervous system, unspecified (principal); F19.90 Other psychoactive substance use, unspecified, uncomplicated; F41.9 Anxiety disorder, unspecified; J44.9 Chronic obstructive pulmonary disease, unspecified; E78.5 Hyperlipidemia, unspecified; K21.9 Gastro-esophageal reflux disease without esophagitis; I10 Essential (primary) hypertension; F10.90 Alcohol use, unspecified, uncomplicated; Y90.9 Presence of alcohol in blood, level not specified; Z87.891 Personal history of nicotine dependence
CPT/HCPCS: 36415; 70450; 80048; 82947; 82962; 84484; 85025; 93005

== ENCOUNTER 2024-11-29 09:10 | Inpatient (IN) | payer MEDICARE, MEDICAID ==
[~2024-11-29] VITALS: Ht 167.6 cm; Wt 58.4 kg
--- NOTE | 2024-11-29 09:30 | ECG ---
[facility] Test Date: 2024-11-29 Test Time: 09:21:20 Pat Name: AMBER MOLINA Department: [facility] ED Patient ID: [id number] Room: [address] [place] [address] Gender: F Community Engagement Coordinator: ISABEL : 1960 Requested By: EMERGENCY EMERGENCY Order Number: [id number] Reading MD: Mario Watson Measurements Intervals [place] Rate: 102 P: 73 NM: 156 QRS: 77 QRSD: 82 T: 48 QT: 325 QTc: 424 Interpretive Statements Sinus tachycardia Anteroseptal infarct, old Baseline wander in lead(s) V1,V2,V3,V4 Electronically Signed On 11-29-2024 18:48:55 PDT by Mario Watson Please click the below link to view image of tracing.
[2024-11-29] MEDS: IPRATROPIUM BROM 0.5 MG/2.5ML INH SOL NEB ONE (09:57)
[2024-11-29] MEDS: ALBUTEROL SULF 2.5 MG/0.5ML(0.5%) NEB SOLN NEB ONE (09:57)
--- NOTE | 2024-11-29 10:00 | ED.PDOC ---
History of Present Illness HPI Comments 64-year-old female presents with chief complaint of shortness of breath. Patient endorses on five day history of progressively worsening difficulty breathing follow up initial, unprovoked and atraumatic onset. Hx of COPD w/O2, GERD, HLD, HTN, and liver disease Patient comments on being unable to walk a few steps with her oxygen before becoming out of breathe. No relevant recent pertinent events endorsed. Denies any chest pain, cough, congestion, fever, chills, or further associated symptoms. Chief Complaint: Shortness of Breath Time Seen by MD: 09:20 Primary Care Provider: UNKNOWN Reviewed Notes: Nurses Notes, Medications, Allergies Allergies: Coded Allergies: NO KNOWN ALLERGIES (Unverified , 05/29/16) Home Meds Active Scripts Thiamine Hcl (VITAMIN B-1) 100 Mg Tb, 100 MG PO DAILY for 30 Days, #30 TAB Prov:AVILA TUCKER BROADCAST DESIGNER 11/08/22 Reported Medications Nystatin (Mouth-Throat) (Mycostatin (Mouth-Throat)) 500,000 Units/5 Ml Ss, 5 ML MT QID for 5 Days, #100 ML 12/29/22 Propranolol Hcl (Inderal La) 60 Mg Cap, 60 MG PO DAILY, CAP 12/29/22 Ipratropium-Albuterol (COMBIVENT RESPIMAT) Respimat Aer, 1 IN, AER 12/29/22 Roflumilast (DALIRESP) 500 Mcg Tab, 250 MCG PO, TAB 11/07/22 Ikxdgmjrogl-Hhkhjgdbqgoz-Zrcse (Trelegy Ellipta 100-62.5-25 Mcg/INH) 1 Aer Aer, 1 AER IN, AER 11/07/22 Lisinopril (Lisinopril) 10 Mg Tab, 10 MG PO DAILY for 30 Days, MG 11/07/22 Benzonatate (Benzonatate) 100 Mg Cap, 100 MG PO DAILY, CAP 11/07/22 Cetirizine Hcl (Kls Aller-Fabian) 10 Mg Tab, 1 TAB PO DAILY, #30 TAB 3 Refills 11/07/22 Simvastatin (Simvastatin) 20 Mg Tab, 20 MG PO DAILY for 30 Days 11/07/22 Nifedipine (Nifedipine Er) 60 Mg Tab, #30 05/30/16 Pantoprazole Sodium Sesquihydr (Pantoprazole Sodium) 40 Mg Tab, #30 2/25/17 Gabapentin (Gabapentin) 300 Mg Cap, #60 05/30/16 Information Source: Patient Mode of Arrival: Ambulatory Past Medical History PAST MEDICAL HISTORY: Anxiety, COPD, GERD, High Lipids, HTN, Liver Surgical History: Denies all surgeries CIGAR TOBACCO REHANDLER History: No Pertinent CIGAR TOBACCO REHANDLER History Family History Family History: Family hx of Cancer Social History Smoker: Quit Greater Than 1 Year, Cigarettes Alcohol: Occasionally Drugs: Marijuana All Other Systems: Reviewed and Negative (Comprehensive systems review obtained and negative except for what is stated in the HPI.) Physical Exam General Appearance: Moderate Distress HEENT: Normal ENT Inspection, Pharynx Normal, TMs Normal Neck: Full Range of Motion, Non-Tender, Normal, Normal Inspection Respiratory: Accessory Muscle Use, Respiratory Distress, Wheezing Cardiovascular: No Edema, No JVD, No Murmur, No Gallop, Normal Peripheral Pulses, Tachycardia Breast Exam: Deferred Gastrointestinal: No Organomegaly, Non Tender, No Pulsatile Mass, Normal Bowel Sounds, Soft Genitalia: Deferred Pelvic: Deferred Rectal: Deferred Extremities: No calf tenderness, Normal capillary refill, Normal inspection, Normal range of motion, Non-tender, No pedal edema Musculoskeletal : Apperance: Normal Neurologic: Alert, No Motor Deficits, No Sensory Deficits Cerebellar Function: NOT DONE Reflexes: NOT DONE Skin: Normal Color Peripheral Pulses: 3+ Radial (R), 3+ Radial (L) Lymphatic: No Adenopathy Was a procedure done? Was a procedure done?: No EKG EKG : Pulse Rate (adult): 102 [place]: Normal Cardiac Rhythm: ST Block: None Hypertrophy: None ST: Normal Differential Dx Considerations may include: COPD exacerbation, URI, pneumonia, CT, PE, ACS, among others X-Ray, Labs, Meds, VS Vital Signs Date Time Temp Pulse Resp B/P (MAP) Pulse Ox O2 Delivery O2 Flow Rate FiO2 11/29/24 15:00 98.9 96 20 121/58 (79) 91 98.9 11/29/24 13:00 97 20 120/70 (87) 93 11/29/24 11:30 99.3 94 20 137/56 (83) 93 99.3 11/29/24 11:30 94 20 93 Nasal Cannula* 2 28 11/29/24 10:00 102 11/29/24 09:57 18 93 Nasal Cannula* 2 28 11/29/24 09:21 102 11/29/24 09:11 98.8 115 28 140/63 93 98.8 Lab Test 11/29/24 14:23 11/29/24 09:56 Range/Units Urine Color Light-yellow Yellow Urine Clarity Clear Clear Urine pH 5.5 5.0-9.0 Urine Specific [place] 1.011 1.001-1.035 Urine Protein Trace H Negative Urine Ketones 1+ H Negative Urine Blood Trace H Negative /uL Urine Nitrite Negative Negative Urine Bilirubin Negative Negative Urine Urobilinogen Normal Negative mg/dL Urine Leukocyte Esterase Trace Negative /uL Urine RBC 1 0 - 4 /hpf Urine Microscopic WBC 1 0-5 /HPF Urine Squamous Epithelial Cells Few <5 /hpf Urine Bacteria None seen None Seen /hpf Urine Mucus Few None Seen Urine Yeast (Budding) Occasional None Seen /hpf Urine Glucose Normal Normal mg/dL White Blood Count 11.8 H 4.4-10.8 10^3/uL Red Blood Count 4.29 4.0-5.20 10^6/uL Hemoglobin 12.5 12.2-16.2 g/dL Hematocrit 36.8 36.0-46.0 % Mean Corpuscular Volume 85.7 80.0-100.0 fL Mean Corpuscular Hemoglobin 29.1 28.0-32.0 pg Mean Corpuscular Hemoglobin Concent 33.9 32.0-36.0 g/dL Red Cell Distribution Width 14.2 11.8-14.3 % Platelet Count 395 140-450 10^3/uL Mean Platelet Volume 7.5 6.9-10.8 fL Neutrophils (%) (Auto) 77.5 37.0-80.0 % Lymphocytes (%) (Auto) 10.1 10.0-50.0 % Monocytes (%) (Auto) 9.4 0.0-12.0 % Eosinophils (%) (Auto) 2.5 0.0-7.0 % Basophils (%) (Auto) 0.5 0.0-2.0 % Neutrophils # (Auto) 9.1 H 1.6-8.6 10 ^3/uL Lymphocytes # (Auto) 1.2 0.4-5.4 10 ^3/uL Monocytes # (Auto) 1.1 0-1.3 10 ^3/uL Eosinophils # (Auto) 0.3 0-0.8 10 ^3/uL Basophils # (Auto) 0.1 0-0.2 10 ^3/uL Nucleated Red Blood Cells 0.0 % Sodium Level 137 136-145 mmol/L Potassium Level 3.5 3.5-5.1 mmol/L Chloride Level 101 98-107 mmol/L Carbon Dioxide Level 24 20-31 mmol/L Anion Gap 12 5-15 Blood Urea Nitrogen 7 L 9-23 mg/dL Creatinine 1.08 H 0.550-1.02 mg/dL Glomerular Filtration Rate Calc 57 >90 mL/min BUN/Creatinine Ratio 6.5 L 10.0-20.0 Serum Glucose 104 74-106 mg/dL Calcium Level 9.8 8.7-10.4 mg/dL B-Type Natriuretic Peptide 100.62 0-100 pg/mL Current Medications Medications (Trade) Dose Ordered Sig/Faith Route Start Time Stop Time Status Last Admin Methylprednisolone Sodium Succinate (Solu Medrol) 125 mg ONCE ONCE IV 11/29/24 09:45 11/29/24 09:46 DC 11/29/24 12:04 Albuterol (Ventolin Medneb) 5 mg ONCE ONCE NEB 11/29/24 09:45 11/29/24 09:46 DC 11/29/24 09:57 Ipratropium Perry (Atrovent Medneb) 0.5 mg ONCE ONCE NEB 11/29/24 09:45 11/29/24 09:46 DC 11/29/24 09:57 Magnesium Sulfate/ Dextrose 100 ml @ 100 mls/hr ONCE ONCE IV 11/29/24 09:45 11/29/24 10:44 DC 11/29/24 12:04 Ceftriaxone Sodium 50 ml @ 100 mls/hr ONCE ONCE IV 11/29/24 10:15 11/29/24 10:44 DC 11/29/24 13:00 Azithromycin 250 ml @ 125 mls/hr ONCE ONCE IV 11/29/24 10:15 11/29/24 12:14 DC 11/29/24 14:30 Patient alert. Complaining of shortness a breath. Placed on oxygen. History of COPD. Was given breathing treatment. Was given steroid. Was given magnesium. Chest x-ray reviewed does show pneumonia. Was given Rocephin. Was given azithromycin. Explained to the patient. Continue monitoring. Time of 1ST Reevaluation: 17:56 Reevaluation 1ST: Unchanged Patient Education/Counseling: Diagnosis, Treatment Family Education/Counseling: No Family Present SEPSIS Sepsis Screen Date sepsis recognized/suspect: Nov 29, 2024 Time Sepsis recognized/suspect: 910 Recent Procedure: No On Antibiotic Therapy: No Respiratory Rate >20: Yes Heart Rate >90: Yes Temp<36 C (96.8 F) or >38.3 C: No SBP <90 or MAP <65 mmHG: No New Acute Mental Status Change: No Is the patient on CPAP, BIPAP,: No Physician Orders Chest Portable (11/29/24 09:35) Vital Signs Date Time Temp Pulse Resp B/P (MAP) Pulse Ox O2 Delivery O2 Flow Rate FiO2 11/29/24 15:00 98.9 96 20 121/58 (79) 91 98.9 11/29/24 13:00 97 20 120/70 (87) 93 11/29/24 11:30 99.3 94 20 137/56 (83) 93 99.3 11/29/24 11:30 94 20 93 Nasal Cannula* 2 28 11/29/24 10:00 102 11/29/24 09:57 18 93 Nasal Cannula* 2 28 11/29/24 09:21 102 11/29/24 09:11 98.8 115 28 140/63 93 98.8 Laboratory Tests Test 11/29/24 09:56 White Blood Count 11.8 10^3/uL (4.4-10.8) H Medications Medications Dose Ordered Sig/Faith Route Start Time Stop Time Status Last Admin Dose Admin Albuterol 5 mg ONCE ONCE NEB 11/29/24 09:45 11/29/24 09:46 DC 11/29/24 09:57 Azithromycin 250 ml @ 125 mls/hr ONCE ONCE IV 11/29/24 10:15 11/29/24 12:14 DC 11/29/24 14:30 Ceftriaxone Sodium 50 ml @ 100 mls/hr ONCE ONCE IV 11/29/24 10:15 11/29/24 10:44 DC 11/29/24 13:00 Ipratropium Perry 0.5 mg ONCE ONCE NEB 11/29/24 09:45 11/29/24 09:46 DC 11/29/24 09:57 Magnesium Sulfate/ Dextrose 100 ml @ 100 mls/hr ONCE ONCE IV 11/29/24 09:45 11/29/24 10:44 DC 11/29/24 12:04 Methylprednisolone Sodium Succinate 125 mg ONCE ONCE IV 11/29/24 09:45 11/29/24 09:46 DC 11/29/24 12:04 Departure 1 Departure Time of Disposition: 10:15 Impression: Primary Impression: Acute respiratory distress Additional Impressions: Chronic obstructive pulmonary disease with acute exacerbation Bilateral pneumonia Qualified Codes: J18.9 - Pneumonia, unspecified organism Disposition: ADMITTED INPATIENT Admit to: ICU Condition: Guarded Critical Care Note Critical Care Time?: Yes (90 min-critical care time only) Stability Stability form required: No Heart Score Heart Score: Heart Score Response (Comments) Value History Moderate Suspicious 1 EKG Normal 0 Age >65 2 Risk Factors >3 or Hx ASHD 2 Troponin Normal limit 0 Total 5 I personally scribed for ARI GARCIA MD ([email or web address]) on 11/29/24 at 10:00. Electronically submitted by Chester Valdez ([email or web address]). ARI GARCIA MD Nov 29, 2024 10:00
--- NOTE | 2024-11-29 10:04 | DVH ---
EXAM: XY CHEST PORTABLE HISTORY: sob COMPARISON: XY CHEST PORTABLE on DOS: 11/06/22, CHEST PORTABLE on DOS: 12/06/20, CXRP on DOS: 12/06/20, MARI ST PORTABLE on DOS: 11/14/20, CHEST PORTABLE on DOS: 10/25/20 TECHNIQUE: Portable upright AP view of the chest was performed. FINDINGS: There is increased interstitial opacity throughout the right lung. There is central peribronchial th ickening. No pneumothorax or new consolidative infiltrates. The heart is not enlarged. The aortic a rch is calcific. There is thoracic degenerative disc disease. IMPRESSION: Increased interstitial opacity throughout the right lung may be due to asymmetric pulmonary edema, as ymmetric reactive airways disease, or interstitial pneumonia. Given this somewhat atypical appearance , consider follow-up noncontrast CT scan of the chest for better characterization.
[2024-11-29 10:23] LABS: Hematocrit 36.8 % (36.0-46.0); Hemoglobin 12.5 g/dL (12.2-16.2); Mean Corpuscular Hemoglobin 29.1 pg (28.0-32.0); Mean Corpuscular Volume 85.7 fL (80.0-100.0); Nucleated Red Blood Cells % 0.0 %
[2024-11-29 10:28] LABS: Chloride 101 mmol/L (98-107); Potassium 3.5 mmol/L (3.5-5.1); Sodium 137 mmol/L (136-145)
[2024-11-29 10:29] LABS: Anion Gap 12 (5-15); Carbon Dioxide 24 mmol/L (20-31)
[2024-11-29 10:30] LABS: Calcium 9.8 mg/dL (8.7-10.4)
[2024-11-29 10:34] LABS: Glucose 104 mg/dL (74-106)
[2024-11-29 10:35] LABS: BUN/Creatinine Ratio 6.5 (10.0-20.0); Blood Urea Nitrogen 7 mg/dL (9-23)
[2024-11-29 11:30] VITALS: PULSE 94; RESP 20; O2SAT 93
[2024-11-29] MEDS: MAGNESIUM SULFATE 1GM/100ML 100 ML IV ONE (12:04)
[2024-11-29] MEDS: methylPREDNISolone SOD SUCC 125 MG/2 ML VL IV ONE (12:04)
[2024-11-29] MEDS: AZITHROMYCIN 500MG/ 250ML 250 ML IV ONE (14:30)
[2024-11-29 14:46] LABS: Urine Budding Yeast OCCASIONAL /hpf (None Seen); Urine Protein, UAD TRACE (Negative)
[2024-11-29] MEDS ORDERED: IPRATROPIUM BROM 0.5 MG/2.5ML INH SOL NEB STA (15:42)
[2024-11-29] MEDS: predniSONE 20 MG TAB PO ONE (15:45)
[2024-11-29] MEDS ORDERED: ALBUTEROL SULF 2.5 MG/0.5ML(0.5%) NEB SOLN NEB ONE (15:45)
[2024-11-29] MEDS ORDERED: AZITHROMYCIN 500MG/ 250ML 250 ML IV ONE (15:45)
[2024-11-29 16:07] VITALS: BP 121/58; PULSE 98; RESP 18; TEMP 98.9; O2SAT 93
--- NOTE | 2024-11-29 17:08 | DVHHPRES ---
History of Present Illness Resident Creating Document: EVELIO SALDANA RESIDENT History of Present Illness 64-year-old female presents with past medical history of COPD on 2 L home oxygen, CKD on stage III, GFR 57, hypertension, liver cirrhosis, GERD presents to the ER with the complaints of shortness of breaths and cough for 5 days. Shortness of breaths exacerbates on lying down and improves on sitting up. The cough is associated with green phlegm, not mixed with blood. She denies any chest pain, fever, abdominal pain, urinary symptoms or any other complaints today. The patient endorsed uncontrolled legs movements. Past medical history:COPD on 2 L home oxygen, CKD on stage III, GFR 57, hypertension, liver cirrhosis, GERD, anxiety Past surgical history: Nothing significant Smoking history: Quit 8 years ago, 32 pack years Alcohol: Used to drink 3 24 oz cans every day, which 2 years ago Drugs: Active marijuana use Allergies: Pollen allergy PCP: Code status: Full code Review of Systems Allergies: Coded Allergies: NO KNOWN ALLERGIES (Unverified , 05/29/16) Medications Current Medications Medications Dose Ordered Sig/Faith Route Start Time Stop Time Status Last Admin Dose Admin Azithromycin 250 ml @ 125 mls/hr DAILY IV 11/30/24 10:[address] [place] 0.5 mg ONCE STAT NEB 11/29/24 15:42 11/29/24 15:43 UNV [address] [place] 0.5 mg Q4HR NEB 11/29/24 18:00 Albuterol 2.5 mg Q4HR NEB 11/29/24 18:00 Prednisone 40 mg DAILY PO 11/30/24 10:00 UNV Exam Vital Signs Vital Signs Date Time Temp Pulse Resp B/P (MAP) Pulse Ox O2 Delivery O2 Flow Rate FiO2 11/29/24 16:07 98.9 98 18 121/58 93 2.0 28 98.9 11/29/24 11:30 Nasal Cannula* Exam Pt is lying on bed General Appearance: Alert, Oriented X3, Cooperative, Mild distress HEENT: Atraumatic, Mucous membranes moist/pink Respiratory: Clear to auscultation, Normal air movement, No added sounds Cardiovascular: Regular rate, Normal S1, Normal S2, No murmurs Abdominal/ : Active bowel sounds, Soft, no distention, no tenderness Extremities: No edema, Normal pulses, No tenderness/swelling Skin: No Significant rash, except past surgical scars Neuro: Normal speech, sensorimotor deficits none Psych/Mental Status: Mental status NL, Mood NL Nurse was there as power plant electrician during examination Labs/Xrays Labs Test 11/29/24 14:23 11/29/24 09:56 Range/Units Urine Color Light-yellow Yellow Urine Clarity Clear Clear Urine pH 5.5 5.0-9.0 Urine Specific [place] 1.011 1.001-1.035 Urine Protein Trace H Negative Urine Ketones 1+ H Negative Urine Blood Trace H Negative /uL Urine Nitrite Negative Negative Urine Bilirubin Negative Negative Urine Urobilinogen Normal Negative mg/dL Urine Leukocyte Esterase Trace Negative /uL Urine RBC 1 0 - 4 /hpf Urine Microscopic WBC 1 0-5 /HPF Urine Squamous Epithelial Cells Few <5 /hpf Urine Bacteria None seen None Seen /hpf Urine Mucus Few None Seen Urine Yeast (Budding) Occasional None Seen /hpf Urine Glucose Normal Normal mg/dL White Blood Count 11.8 H 4.4-10.8 10^3/uL Red Blood Count 4.29 4.0-5.20 10^6/uL Hemoglobin 12.5 12.2-16.2 g/dL Hematocrit 36.8 36.0-46.0 % Mean Corpuscular Volume 85.7 80.0-100.0 fL Mean Corpuscular Hemoglobin 29.1 28.0-32.0 pg Mean Corpuscular Hemoglobin Concent 33.9 32.0-36.0 g/dL Red Cell Distribution Width 14.2 11.8-14.3 % Platelet Count 395 140-450 10^3/uL Mean Platelet Volume 7.5 6.9-10.8 fL Neutrophils (%) (Auto) 77.5 37.0-80.0 % Lymphocytes (%) (Auto) 10.1 10.0-50.0 % Monocytes (%) (Auto) 9.4 0.0-12.0 % Eosinophils (%) (Auto) 2.5 0.0-7.0 % Basophils (%) (Auto) 0.5 0.0-2.0 % Neutrophils # (Auto) 9.1 H 1.6-8.6 10 ^3/uL Lymphocytes # (Auto) 1.2 0.4-5.4 10 ^3/uL Monocytes # (Auto) 1.1 0-1.3 10 ^3/uL Eosinophils # (Auto) 0.3 0-0.8 10 ^3/uL Basophils # (Auto) 0.1 0-0.2 10 ^3/uL Nucleated Red Blood Cells 0.0 % Sodium Level 137 136-145 mmol/L Potassium Level 3.5 3.5-5.1 mmol/L Chloride Level 101 98-107 mmol/L Carbon Dioxide Level 24 20-31 mmol/L Anion Gap 12 5-15 Blood Urea Nitrogen 7 L 9-23 mg/dL Creatinine 1.08 H 0.550-1.02 mg/dL Glomerular Filtration Rate Calc 57 >90 mL/min BUN/Creatinine Ratio 6.5 L 10.0-20.0 Serum Glucose 104 74-106 mg/dL Calcium Level 9.8 8.7-10.4 mg/dL SEPSIS Sepsis Screen Date sepsis recognized/suspect: Nov 29, 2024 Time Sepsis recognized/suspect: 1129 Recent Procedure: No On Antibiotic Therapy: No Respiratory Rate >20: No Heart Rate >90: Yes Temp<36 C (96.8 F) or >38.3 C: No SBP <90 or MAP <65 mmHG: No New Acute Mental Status Change: No Is the patient on CPAP, BIPAP,: No Physician Orders Chest Portable (11/29/24 09:35) Admit (11/29/24 15:07) Allergies (11/29/24 15:07) Code Status (11/29/24 15:07) Renal Standard(2gna,3gk,Lopho) (11/29/24 Dinner) Oxygen Per Hour (11/29/24 15:07) Complete Blood Count (11/30/24 04:00) Comprehensive Metabolic Panel (11/30/24 04:00) Cardiac Diet-2gna,Lofat,Lochol (11/29/24 Dinner) Oxygen By Nasal Cannula (11/29/24 15:07) Stat Ekg For Chest Pain (11/29/24 15:07) Notify Md Of Changes From Base (11/29/24 15:07) Emergency Dysrhythmia Protocol (11/29/24 15:07) Rhythm Strips Once Every Shift (11/29/24 15:07) Azithromycin 500mg/ 250ml (Zithromax 50 (11/30/24 10:00) Ipratropium Medneb (Atrovent Medneb) (11/29/24 18:00) Albuterol Medneb (Ventolin Medneb) (11/29/24 18:00) Prednisone Tablet (11/30/24 10:00) Covid19 Antigen [place] (11/29/24 ) Rapid Influenza A&B (11/29/24 16:58) B-Type Natriuretic Peptide (11/29/24 16:58) Vital Signs Date Time Temp Pulse Resp B/P (MAP) Pulse Ox O2 Delivery O2 Flow Rate FiO2 11/29/24 16:07 98.9 98 18 121/58 93 2.0 28 98.9 11/29/24 15:00 98.9 96 20 121/58 (79) 91 98.9 11/29/24 13:00 97 20 120/70 (87) 93 11/29/24 11:30 99.3 94 20 137/56 (83) 93 99.3 11/29/24 11:30 94 20 93 Nasal Cannula* 2 28 11/29/24 10:00 102 11/29/24 09:57 18 93 Nasal Cannula* 2 28 11/29/24 09:21 102 11/29/24 09:11 98.8 115 28 140/63 93 98.8 Laboratory Tests Test 11/29/24 09:56 White Blood Count 11.8 10^3/uL (4.4-10.8) H Medications Medications Dose Ordered Sig/Faith Route Start Time Stop Time Status Last Admin Dose Admin Albuterol 5 mg ONCE ONCE NEB 11/29/24 09:45 11/29/24 09:46 DC 11/29/24 09:57 5 MG Azithromycin 250 ml @ 125 mls/hr ONCE ONCE IV 11/29/24 10:15 11/29/24 12:14 DC 11/29/24 14:30 125 MLS/HR Ceftriaxone Sodium 50 ml @ 100 mls/hr ONCE ONCE IV 11/29/24 10:15 11/29/24 10:44 DC 11/29/24 13:00 100 MLS/HR Ipratropium [place] 0.5 mg ONCE ONCE NEB 11/29/24 09:45 11/29/24 09:46 DC 11/29/24 09:57 0.5 MG Magnesium Sulfate/ Dextrose 100 ml @ 100 mls/hr ONCE ONCE IV 11/29/24 09:45 11/29/24 10:44 DC 11/29/24 12:04 100 MLS/HR Methylprednisolone Sodium Succinate 125 mg ONCE ONCE IV 11/29/24 09:45 11/29/24 09:46 DC 11/29/24 12:04 125 MG Assessment/Plan Assessment/Plan #Sepsis due to COPD exacerbation #Acute on chronic hypoxic respiratory failure #CKD on stage III #Hypertension #Liver cirrhosis, possible alcoholic #GERD #Former smoker #CBD use #Former alcohol abuse Cardiac and renal diet -azithromycin -oxygen by nasal cannula -prednisone 40 mg daily -breathing treatments with ipratropium and albuterol q8h -leukocytosis, CXR: COPD, mildly increased interstitial marking GI prophylaxis: protonix PO DVT prophylaxis: Lovenox Goals of care discussed with the patient for more than 27 minutes: Full code status Case discussed with Dr. Ramírez, patient and RN Cosigned by Dr Neely, PGY2, resident Plan discussed with: Patient, Other (RN) My Orders Orders - EVELIO SALDANA RESIDENT Procedure Category Date Status Time Admit ADMIT 11/29/24 Transmitted 15:07 Allergies [place]ARWIN 11/29/24 In Process 15:07 Code Status CODE 11/29/24 Transmitted 15:07 Renal DIET 11/29/24 Transmitted Standard(2gna,3gk,Lopho) Dinner Oxygen Per Hour RT 11/29/24 Transmitted 15:07 Complete Blood Count LAB 11/30/24 Verified 04:00 Comprehensive LAB 11/30/24 Verified Metabolic Panel 04:00 Cardiac DIET 11/29/24 Transmitted Diet-2gna,Lofat,Lochol Dinner Oxygen By Nasal RT 11/29/24 Transmitted Cannula 15:07 Stat Ekg For Chest DARWIN 11/29/24 In Process Pain 15:07 Notify Md Of Changes DARWIN 11/29/24 In Process From Base 15:07 Emergency Dysrhythmia DARWIN 11/29/24 In Process Protocol 15:07 Rhythm Strips Once [place] 11/29/24 In Process Every Shift 15:07 Azithromycin 500mg/ PHA 11/30/24 In Process 250ml (Zithromax 50 10:00 Ipratropium Medneb PHA 11/29/24 In Process (Atrovent Medneb) 18:00 Albuterol Medneb PHA 11/29/24 In Process (Ventolin Medneb) 18:00 Prednisone Tablet PHA 11/30/24 Logged 10:00 Covid19 Antigen [place] LAB 11/29/24 Logged Rapid Influenza A&B LAB 11/29/24 Logged 16:58 B-Type Natriuretic LAB 11/29/24 In Process Peptide 16:58 EVELIO SALDANA RESIDENT Nov 29, 2024 17:08
[2024-11-29] MEDS: ALBUTEROL SULF 2.5 MG/0.5ML(0.5%) NEB SOLN NEB SCH (17:28)
[2024-11-29] MEDS: IPRATROPIUM BROM 0.5 MG/2.5ML INH SOL NEB SCH (17:28)
[2024-11-29] MEDS ORDERED: ALBUTEROL SULF 2.5 MG/0.5ML(0.5%) NEB SOLN NEB SCH (18:00)
[2024-11-29 20:48] VITALS: BP 137/82; PULSE 70; RESP 18; TEMP 98.6; O2SAT 92
[2024-11-29 21:00] VITALS: BP 137/82; PULSE 70; RESP 18; TEMP 98.6; O2SAT 92
[2024-11-29] MEDS ORDERED: predniSONE 20 MG TAB PO SCH (22:00)
[2024-11-29 22:02] VITALS: PULSE 90; RESP 18; O2SAT 94
[2024-11-29 22:12] VITALS: PULSE 88; RESP 18; O2SAT 99
[2024-11-29] MEDS ORDERED: TRAZ-228 PO (23:25)
[2024-11-30] VITALS (17 sets, daily range): BP systolic 131–150; BP diastolic 65–71; PULSE 60–107; RESP 16–20; TEMP 97.5–98.9; O2SAT 90–99
[2024-11-30 06:44] LABS: Hematocrit 31.3 % (36.0-46.0); Hemoglobin 10.7 g/dL (12.2-16.2); Mean Corpuscular Hemoglobin 28.7 pg (28.0-32.0); Mean Corpuscular Volume 84.2 fL (80.0-100.0); Nucleated Red Blood Cells % 0.0 %
[2024-11-30 07:08] LABS: Alanine Aminotransferase 14 U/L (7-40); Albumin 4.5 g/dL (3.2-4.8); Alkaline Phosphatase 72 U/L (46-116); Anion Gap 12 (5-15); BUN/Creatinine Ratio 12.4 (10.0-20.0); Blood Urea Nitrogen 13 mg/dL (9-23); Calcium 9.2 mg/dL (8.7-10.4); Carbon Dioxide 24 mmol/L (20-31); Chloride 105 mmol/L (98-107); Potassium 3.7 mmol/L (3.5-5.1); Sodium 141 mmol/L (136-145); Total Protein 7.7 g/dL (5.7-8.2)
[2024-11-30 07:09] LABS: Bilirubin, Total 0.3 mg/dL (0.2-1.0); Glucose 162 mg/dL (74-106)
[2024-11-30] MEDS: predniSONE 20 MG TAB PO SCH (08:23)
[2024-11-30] MEDS: AZITHROMYCIN 500MG/ 250ML 250 ML IV SCH (08:23)
[2024-11-30 08:45] LABS: COVID19 ANTIGEN SOFIA FIA NEGATIVE (NEGATIVE)
[2024-11-30] MEDS: PANTOPRAZOLE 40 MG TAB PO ONE (08:45)
[2024-11-30] MEDS: ENOXAPARIN SOD 40 MG/0.4 ML SYRINGE SC SCH (10:16)
[2024-11-30] MEDS: ACETAMINOPHEN 325 MG TAB PO PRN (10:25)
[2024-11-30] MEDS: LISINOPRIL 5 MG TAB PO ONE (18:00)
--- NOTE | 2024-11-30 20:11 | DVHPNRES ---
Progress Note Date Seen: Nov 30, 2024 Resident Creating Document: EVELIO SALDANA RESIDENT Medical Necessity Reason Pt with a Central, PICC or Fol: No Subjective Review of Systems Marli Tamayo 64-year-old female presents with past medical history of COPD on 2 L home oxygen, CKD on stage III, GFR 57, hypertension, liver cirrhosis, GERD presents to the ER with the complaints of shortness of breaths and cough for 5 days. Shortness of breaths exacerbates on lying down and improves on sitting up. The cough is associated with green phlegm, not mixed with blood. She denies any chest pain, fever, abdominal pain, urinary symptoms or any other complaints today. The patient endorsed uncontrolled legs movements. She denies any history of previous intubation due to COPD. Past medical history:COPD on 2 L home oxygen, CKD on stage III, GFR 57, hypertension, liver cirrhosis, GERD, anxiety Past surgical history: Nothing significant Smoking history: Quit 8 years ago, 32 pack years Alcohol: Used to drink 3 24 oz cans every day, which 2 years ago Drugs: Active marijuana use Allergies: Pollen allergy Code status: Full code 11/30/2024 interval events: The patient reports improvement in her symptoms of cough and shortness of breaths. She denies any chest pain, abdominal pain, urinary symptoms or any other complaints. Objective vital signs Vital Sign Date Time Temp Pulse Resp B/P (MAP) Pulse Ox O2 Delivery O2 Flow Rate FiO2 11/30/24 18:00 150/67 11/30/24 17:36 20 88 Room Air* 0 21 11/30/24 16:50 98.9 106 98.9 Total Intake and Output 11/29/24 11/29/24 11/30/24 15:00 23:00 07:00 Intake Total 150 ml 250 ml 230 ml Balance 150 ml 250 ml 230 ml medications Current Medications Medications Dose Ordered Sig/Faith Route Start Time Stop Time Status Last Admin Dose Admin Azithromycin 250 ml @ 125 mls/hr DAILY IV 11/30/24 10:00 11/30/24 08:23 125 MLS/HR Ipratropium [place] 0.5 mg ONCE STAT NEB 11/29/24 15:42 11/29/24 15:43 UNV Ipratropium [place] 0.5 mg Q4HR NEB 11/29/24 18:00 11/30/24 17:36 0.5 MG Albuterol 2.5 mg Q4HR NEB 11/29/24 18:00 11/30/24 17:36 2.5 MG Prednisone 40 mg DAILY PO 11/30/24 10:00 11/30/24 08:23 40 MG Pantoprazole Sodium 40 mg DAILY@0600 PO 12/01/24 06:00 Enoxaparin Sodium 40 mg DAILY SC 11/30/24 10:00 11/30/24 10:16 40 MG Acetaminophen 650 mg Q4HP PRN PO 11/30/24 09:30 11/30/24 10:25 650 MG Lisinopril 10 mg DAILY PO 12/01/24 10:00 Trazodone HCl 100 mg HS PO 11/30/24 22:00 Examination Pt is lying on bed General Appearance: Alert, Oriented X3, Cooperative, Mild distress HEENT: Atraumatic, Mucous membranes moist/pink Respiratory: Mild wheezing on auscultation, Normal air movement, No added sounds Cardiovascular: Regular rate, Normal S1, Normal S2, No murmurs Abdominal/ : Active bowel sounds, Soft, no distention, no tenderness Extremities: No edema, Normal pulses, No tenderness/swelling, uncontrolled leg movements Skin: No Significant rash, except past surgical scars Neuro: Normal speech, sensorimotor deficits none Psych/Mental Status: Mental status NL, Mood NL Nurse was there as university administrative assistant during examination laboratory and microbiology Laboratory Tests 11/30/24 05:40 Test 11/30/24 05:40 Range/Units Serum Glucose 162 H 74-106 mg/dL Labs and/or images reviewed: Labs reviewed by me, Image(s) reviewed by me Problem List/Assessment/Plan Problem List/Assessment/Plan #Sepsis secondary to probable community acquired pneumonia #COPD exacerbation #Acute on chronic hypoxic respiratory failure #CKD on stage III #Hypertension #Liver cirrhosis, possible alcoholic #GERD #Former smoker #CBD use #Former alcohol abuse Cardiac and renal diet -azithromycin -oxygen by nasal cannula -prednisone 40 mg daily -breathing treatments with ipratropium and albuterol q8h -leukocytosis, CXR: COPD, mildly increased interstitial marking GI prophylaxis: protonix PO DVT prophylaxis: Lovenox Goals of care discussed with the patient for more than 27 minutes: Full code status Case discussed with Dr. Ramírez, patient and RN Plan discussed with: Patient, Other (RN) My Orders My Orders Orders - EVELIO SALDANA RESIDENT Procedure Category Date Status Time Respiratory Culture KEV 11/30/24 In Process W/ Gs 09:34 Acute Hepatitis Panel LAB 11/30/24 In Process 19:22 Date of Service: Nov 30, 2024 Billing Provider: JAMES RAMÍREZ MD Common Visit Codes: [id number] INP/OBS CARE(HIGH) SHANAEVELIO Sewell RESIDENT Nov 30, 2024 20:11 EVELIO MATHEWS RESIDENT Dec 01, 2024 19:00 LILIA ELLIS RESIDENT Dec 01, 2024 20:27 JAMES RAMÍREZ MD Dec 08, 2024 21:11
[2024-12-01] VITALS (14 sets, daily range): BP systolic 128–164; BP diastolic 63–86; PULSE 83–98; RESP 16–20; TEMP 97.7–98.7; O2SAT 90–99
[2024-12-01] MEDS: PANTOPRAZOLE 40 MG TAB PO SCH (05:26)
[2024-12-01 07:35] LABS: Hematocrit 31.8 % (36.0-46.0); Hemoglobin 10.7 g/dL (12.2-16.2); Mean Corpuscular Hemoglobin 28.5 pg (28.0-32.0); Mean Corpuscular Volume 84.8 fL (80.0-100.0); Nucleated Red Blood Cells % 0.0 %
[2024-12-01 07:44] LABS: Alanine Aminotransferase 19 U/L (7-40); Albumin 4.4 g/dL (3.2-4.8); Alkaline Phosphatase 69 U/L (46-116); Anion Gap 9 (5-15); BUN/Creatinine Ratio 14.6 (10.0-20.0); Blood Urea Nitrogen 13 mg/dL (9-23); Calcium 9.5 mg/dL (8.7-10.4); Carbon Dioxide 27 mmol/L (20-31); Chloride 106 mmol/L (98-107); Potassium 3.6 mmol/L (3.5-5.1); Sodium 142 mmol/L (136-145); Total Protein 7.6 g/dL (5.7-8.2)
[2024-12-01 08:14] LABS: Bilirubin, Total 0.2 mg/dL (0.2-1.0); Glucose 113 mg/dL (74-106)
[2024-12-01] MEDS: LISINOPRIL 5 MG TAB PO SCH (10:30)
[2024-12-01 11:12] LABS: Hepatitis B Surface Antigen Negative (Negative)
[2024-12-01 11:13] LABS: Hepatitis C Antibody Positive (Negative)
[2024-12-01] MEDS ORDERED: AZIT-185 PO (15:28)
[2024-12-01] MEDS ORDERED: PRED20TA2 PO (15:28)
--- NOTE | 2024-12-01 18:24 | DVHDSRES ---
Discharge Summary Date of Admission Resident Creating Document: EVELIO SALDANA Nov 29, 2024 at 15:07 Date of Discharge: Dec 01, 2024 Admitting Diagnosis COPD exacerbation Labs/Diagnostic Data: Laboratory Results Test 12/01/24 06:25 11/30/24 07:49 11/30/24 05:40 11/29/24 14:23 White Blood Count 11.0 10^3/uL (4.4-10.8) Red Blood Count 3.75 10^6/uL (4.0-5.20) Hemoglobin 10.7 g/dL (12.2-16.2) Hematocrit 31.8 % (36.0-46.0) Mean Corpuscular Volume 84.8 fL (80.0-100.0) Mean Corpuscular Hemoglobin 28.5 pg (28.0-32.0) Mean Corpuscular Hemoglobin Concent 33.6 g/dL (32.0-36.0) Red Cell Distribution Width 14.3 % (11.8-14.3) Platelet Count 366 10^3/uL (140-450) Mean Platelet Volume 7.3 fL (6.9-10.8) Neutrophils (%) (Auto) 74.8 % (37.0-80.0) Lymphocytes (%) (Auto) 14.8 % (10.0-50.0) Monocytes (%) (Auto) 10.2 % (0.0-12.0) Eosinophils (%) (Auto) 0.1 % (0.0-7.0) Basophils (%) (Auto) 0.1 % (0.0-2.0) Neutrophils # (Auto) 8.2 10 ^3/uL (1.6-8.6) Lymphocytes # (Auto) 1.6 10 ^3/uL (0.4-5.4) Monocytes # (Auto) 1.1 10 ^3/uL (0-1.3) Eosinophils # (Auto) 0 10 ^3/uL (0-0.8) Basophils # (Auto) 0 10 ^3/uL (0-0.2) Nucleated Red Blood Cells 0.0 % Sodium Level 142 mmol/L (136-145) Potassium Level 3.6 mmol/L (3.5-5.1) Chloride Level 106 mmol/L (98-107) Carbon Dioxide Level 27 mmol/L (20-31) Anion Gap 9 (5-15) Blood Urea Nitrogen 13 mg/dL (9-23) Creatinine 0.89 mg/dL (0.550-1.02) Glomerular Filtration Rate Calc 71 mL/min (>90) BUN/Creatinine Ratio 14.6 (10.0-20.0) Serum Glucose 113 mg/dL (74-106) Calcium Level 9.5 mg/dL (8.7-10.4) Total Bilirubin 0.2 mg/dL (0.2-1.0) Aspartate Amino Transferase (AST) 32 U/L (13-40) Alanine Aminotransferase (ALT) 19 U/L (7-40) Alkaline Phosphatase 69 U/L (46-116) Total Protein 7.6 g/dL (5.7-8.2) Albumin 4.4 g/dL (3.2-4.8) Influenza Type A Antigen Negative (Negative) Influenza Type B Antigen Negative (Negative) SARS-CoV-2 Antigen (Rapid) Negative (NEGATIVE) Hemoglobin A1c 5.4 % A1C (<5.7) Hepatitis A IgM Antibody Negative Hepatitis B Surface Antigen Negative (Negative) Hepatitis B Core IgM Antibody Negative (Negative) Hepatitis C Antibody Positive (Negative) Urine Color Light-yellow (Yellow) Urine Clarity Clear (Clear) Urine pH 5.5 (5.0-9.0) Urine Specific [place] 1.011 (1.001-1.035) Urine Protein Trace (Negative) Urine Ketones 1+ (Negative) Urine Blood Trace /uL (Negative) Urine Nitrite Negative (Negative) Urine Bilirubin Negative (Negative) Urine Urobilinogen Normal mg/dL (Negative) Urine Leukocyte Esterase Trace /uL (Negative) Urine RBC 1 /hpf (0 - 4) Urine Microscopic WBC 1 /HPF (0-5) Urine Squamous Epithelial Cells Few /hpf (<5) Urine Bacteria None seen /hpf (None Seen) Urine Mucus Few (None Seen) Urine Yeast (Budding) Occasional /hpf (None Urine Glucose Normal mg/dL (Normal) Test 11/29/24 09:56 B-Type Natriuretic Peptide 100.62 pg/mL (0-100) Other Laboratory Tests 12/01/24 06:25 Brief Hx & Hospital Course: 64-year-old female with past medical history of COPD on 2 L home oxygen, CKD stage 3, GFR 57, hypertension, liver cirrhosis, GERD presented to the ER with the complaints of shortness of breaths and cough for 5 days. Cough was associated with green phlegm, not mixed with blood. Brief hospital course: Acute respiratory failure and sepsis probable community acquired pneumonia due to COPD exacerbation, responding to IV fluids, IV antibiotics, IV steroids and see oxygen therapy. Chest x-ray showed finding consistent with COPD and mildly increased interstitial markings. Labs revealed leukocytosis, supporting infection to be a trigger for COPD exacerbation. She was started on azithromycin and prednisone 40 mg daily, along with scheduled breathing treatments using ipratropium and albuterol every 8 hours.Her oxygen requirement was maintained via nasal cannula. GI prophylaxis with oral Protonix and DVT prophylaxis with Lovenox were initiated. The patient responded well to treatment, with improvement in respiratory symptoms and oxygenation. No invasive procedures were required. She remained hemodynamically stable and did not require ICU care or intubation. Her code status remained full code throughout the admission. Patient hemodynamically stable, asymptomatic, with normal requirement of home oxygen (2 L/min), in condition to be discharged home. Was granted under optimal medical therapy (azithromycin and prednisone for seven days), gave her advice on one healthy lifestyle habits, and follow up with discharge Clinic, PCP and pulmonology. Pt is lying on bed General Appearance: Alert, Oriented X3, Cooperative HEENT: Atraumatic, Mucous membranes moist/pink Respiratory: Clear to auscultation, Normal air movement, No added sounds Cardiovascular: Regular rate, Normal S1, Normal S2, No murmurs Abdominal/ : Active bowel sounds, Soft, no distention, no tenderness Extremities: No edema, Normal pulses, No tenderness/swelling, uncontrolled leg movements Skin: No Significant rash, except past surgical scars Neuro: Normal speech, sensorimotor deficits none Psych/Mental Status: Mental status NL, Mood NL Nurse was there as chinese instructor during examination Case discussed with Dr Ramírez Operations or Procedures CXR: Increased interstitial opacity throughout the right lung may be due to asymmetric pulmonary edema, asymmetric reactive airways disease, or interstitial pneumonia. Given this somewhat atypical appearance, consider follow-up noncontrast CT scan of the chest for better characterization. Condition at Discharge: Stable Final Diagnosis/Problems List Sepsis due to probable pneumonia gram+/ gram- COPD exacerbation Acute on chronic hypoxic respiratory failure CKD on stage III Hypertension Liver cirrhosis possibly alcoholic GERD Former smoker Cannabinoid use Former alcohol abuse GERD Former smoker Former alcohol abuse Discharge Disposition: Home Discharge Instruct/Medications Diet: Consistent carbohydrate Activity: No Restrictions, As Tolerated Follow Up/Referral: Follow up with PCP in 2 weeks Medications: As per EMR Scheduled Azithromycin (Zithromax Tablet), 500 MG PO DAILY Cetirizine Hcl (Kls Aller-Fabian), 1 TAB PO DAILY, (Reported) Lisinopril (Lisinopril), 10 MG PO DAILY, (Reported) Prednisone (Prednisone), 40 MG PO DAILY Simvastatin (Simvastatin), 20 MG PO DAILY, (Reported) Thiamine Hcl (Vitamin B-1), 100 MG PO DAILY Miscellaneous Medications [id number] (Trelegy Ellipta 100-62.5-25 Mcg/INH), 1 AER IN, (Reported) Gabapentin (Gabapentin), (Reported) Ipratropium-Albuterol (Combivent Respimat), 1 IN, (Reported) Nifedipine (Nifedipine Er), (Reported) Pantoprazole Sodium Sesquihydr (Pantoprazole Sodium), (Reported) Trazodone Hcl (Trazodone Hcl), 1 TAB PO, (Reported) Discharge Statement: "Patient was advised to return to the ER or call 911 if any headaches, dizziness, shortness of breath, chest pain, abdominal pain, bleeding, fevers, or worsening of medical condition. Patient was counseled about treatment plan, medications, possible side effects, patientverbalized understanding. All questions were answered to the best of my ability. This discharge took greater then 30 minutes in planning, reviewing documentation, counseling the patient, and discussing with other team members." ASSESSMENT ASSESSMENT Assessment Sepsis due to COPD exacerbation Acute on chronic hypoxic respiratory failure CKD on stage III Hypertension Liver cirrhosis possible occult GERD Former smoker ERICA cannabinoid use Former alcohol abuse Date of Service: Dec 01, 2024 Billing Provider: JAMES RAMÍREZ MD Common Visit Codes: [id number]/OBS DISCH DAY >30min EVELIO SALDANA RESIDENT Dec 01, 2024 18:24 LILIA ELLIS RESIDENT Dec 01, 2024 20:33 EVELIO MATHEWS RESIDENT Dec 04, 2024 06:50 JAMES RAMÍREZ MD Dec 08, 2024 21:23
== END 2024-12-01 17:50 | disposition home or self-care (01) | DRG 871 ==
LOC: ER 09:10 → OVERFLOW 15:07 → WEST WING 11-30 11:55 → OVERFLOW 11-30 12:42 → EAST 12-01 01:05
PROVIDERS: ADMIT Student in an Organized Health Care Education/Training Program; ATTEND Student in an Organized Health Care Education/Training Program
DX: A41.9 Sepsis, unspecified organism (principal); J18.9 Pneumonia, unspecified organism; J96.21 Acute and chronic respiratory failure with hypoxia; J44.1 Chronic obstructive pulmonary disease with (acute) exacerbation; J44.0 Chronic obstructive pulmonary disease with (acute) lower respiratory infection; K21.9 Gastro-esophageal reflux disease without esophagitis; F10.10 Alcohol abuse, uncomplicated; E78.5 Hyperlipidemia, unspecified; Z20.822 Contact with and (suspected) exposure to COVID-19; F41.9 Anxiety disorder, unspecified; I12.9 Hypertensive chronic kidney disease with stage 1 through stage 4 chronic kidney disease, or unspecified chronic kidney disease; N18.30 Chronic kidney disease, stage 3 unspecified; Y90.9 Presence of alcohol in blood, level not specified; K70.30 Alcoholic cirrhosis of liver without ascites; F12.90 Cannabis use, unspecified, uncomplicated; Z87.891 Personal history of nicotine dependence; Z91.048 Other nonmedicinal substance allergy status
CPT/HCPCS: 36415; 71045; 80048; 80053; 80074; 81001; 83036; 83880; 85025; 87070; 87081; 87205; 87426; 87804; 93005; 94640; 96374; 99291; 99292; G0378